=== PATIENT | female | born 1935 | race Caucasian/White ===

== ENCOUNTER 2024-03-29 08:35 | Observation (INO) ==
--- NOTE | 2024-03-25 11:51 | PAT Medication Instructions ---
Medication Instructions Date of Service March 25, 2024 Home Medications amlodipine 5 mg tablet 5 mg PO QPM aspirin 81 mg tablet,delayed release 81 mg PO QAM citalopram 40 mg tablet (Celexa) 40 mg PO HS cyanocobalamin (vitamin B-12) 1,000 mcg tablet,extended release 1,000 mcg PO QAM levothyroxine 88 mcg capsule 88 mcg PO QAM oxybutynin chloride 10 mg tablet,extended release 24 hr 10 mg PO QAM pantoprazole 40 mg tablet,delayed release 40 mg PO QAM pravastatin 80 mg tablet 80 mg PO QPM ubidecarenone-omega 3-vit E 25 mg-150 (90-60) mg-200 unit capsule (Co S-67-Hnlasiv E-Fish Oil) 1 cap PO BID ASK your prescriber and surgeon aspirin 81 mg tablet,delayed release 81 mg PO QAM STOP taking 2 weeks before surgery (or as soon as possible if surgery is within 2 weeks) ubidecarenone-omega 3-vit E 25 mg-150 (90-60) mg-200 unit capsule (Co Q-95-Hfoxlzy E-Fish Oil) 1 cap PO BID DO NOT take the morning of surgery cyanocobalamin (vitamin B-12) 1,000 mcg tablet,extended release 1,000 mcg PO QAM Take morning of surgery With a small sip of water, OTHERWISE NOTHING TO EAT OR DRINK AFTER MIDNIGHT: levothyroxine 88 mcg capsule 88 mcg PO QAM oxybutynin chloride 10 mg tablet,extended release 24 hr 10 mg PO QAM pantoprazole 40 mg tablet,delayed release 40 mg PO QAM Take evening before surgery amlodipine 5 mg tablet 5 mg PO QPM citalopram 40 mg tablet (Celexa) 40 mg PO HS pravastatin 80 mg tablet 80 mg PO QPM Other Notes If you have any questions please call us at [phone] or [phone] or [phone] or [phone]
--- NOTE | 2024-03-25 12:23 | Anesthesiology Consultation ---
Date of Service March 25, 2024 Assessment & Plan (1) Encounter for pre-operative examination: - cardiology office visit 02/23/24 [facility]: "...CAD-100% RCA, mild disease in circumflex and LAD via cath 2003. Hypertension. Hyperlipidemia. Mild aortic valve sclerosis...able to complete ADLs independently...stable. Denies nitroglycerin use...not on BB due to SB...Follow up in 1 year..." - Case discussed in detail with Dr. Escalante who advised nothing additional is needed prior to surgery. - Outpatient joint assessment: Patient is currently scheduled for inpatient pathway. If re-evaluated and patient/surgeon requests outpatient pathway, patient is not recommended candidate for outpatient joint program from anesthesia standpoint. Chart Review Chart Review: Acceptable Risk for Surgery and Patient seen in Pre Admission Testing Teaching & Discussion Pre-Anesthesia Teaching/Discussion Notes: Instructed NPO after midnight before surgery, except medications with 15 cc of water. Medication instructions provided according to the PAT guidelines. History Surgery Operation Date: 03/29/24 12:30 Proposed Procedures p Right Total Hip Arthroplasty - Ebenezer Fry MD Height/Weight Height: 5 ft 1 in Weight: 75.2 kg Allergies Allergy/AdvReac Type Severity Reaction Status Date / Time nitrofurantoin Allergy Intermediate "felt Verified 03/25/24 11:24 [From Macrodantin] funny" Sulfa (Sulfonamide Allergy Intermediate Hives Verified 03/25/24 11:24 Antibiotics) Medications Home Medications Medication Instructions Recorded Confirmed Last Taken amlodipine 5 mg tablet 5 mg PO QPM 03/25/24 03/25/24 Unknown aspirin 81 mg tablet,delayed 81 mg PO QAM 03/25/24 03/25/24 Unknown release citalopram 40 mg tablet (Celexa) 40 mg PO HS 03/25/24 03/25/24 Unknown cyanocobalamin (vitamin B-12) 1,000 mcg PO QAM 03/25/24 03/25/24 Unknown 1,000 mcg tablet,extended release levothyroxine 88 mcg capsule 88 mcg PO QAM 03/25/24 03/25/24 Unknown oxybutynin chloride 10 mg 10 mg PO QAM 03/25/24 03/25/24 Unknown tablet,extended release 24 hr pantoprazole 40 mg tablet,delayed 40 mg PO QAM 03/25/24 03/25/24 Unknown release pravastatin 80 mg tablet 80 mg PO QPM 03/25/24 03/25/24 Unknown ubidecarenone-omega 3-vit E 25 1 cap PO BID 03/25/24 03/25/24 Unknown mg-150 (90-60) mg-200 unit capsule (Co I-84-Nkzcxci E-Fish Oil) Past Medical History Medical History (Updated 03/25/24 @ 12:27 by Gricelda Delgadillo PA-C) CAD (coronary artery disease) follows with [facility] Closed fracture of right hip Depressive disorder Generalized anxiety disorder GERD (gastroesophageal reflux disease) controlled, stable per pt History of COVID-2021--mild symptoms, resolved History of diverticulitis 1960s Hypertension controlled, stable per pt Hypothyroidism Iron deficiency anemia Metabolic syndrome Mixed hyperlipidemia Osteoarthritis Osteoporosis Urinary incontinence, mixed Patient denies h/o stroke, seizures, heart attack, heart failure, DM, blood clots/DVTs or blood transfusions. Exercise / Class Metabolic Activity III < 4 Walking/Shop/Light housework (ambulates with walker, denies chest discomfort or shortness of breath with usual activities) Past Family History Family History Daughter Family history of reaction to anesthesia "couldn't catch my breath after having my tubes tied 30yrs ago"--"I just had surgery in Sep 2023 on my breast and didnt have any issues at all" Past Surgical History Surgical History History of appendectomy History of bilateral cataract extraction History of cardiac cath 2003: 100% RCA stenosis, mild disease in Cx and LAD per [facility] records History of cholecystectomy History of colonoscopy History of dilatation and curettage History of hysterectomy with unilateral oophorectomy History of repair of left rotator cuff History of tooth extraction partial upper Past Anesthesia History No Hx of Anesthesia Complications and Other (see above re: daughter-patient notes daughter has asthma) History of PONV No Hx of PONV and No Hx of Motion Sickness Social History Smoking Status: Never smoker Do You Dip or Chew Tobacco: No Hx Alcohol Use: Yes Alcohol type: beer alcohol intake frequency: holidays/special occasions only Hx Substance Use: No substance use type: does not use Review of Systems Snoring, denies witnessed apneas. Patient denies chest pain, shortness of breath, dyspnea on exertion, fever, chills, cough, wheezing, or palpitations. Physical Exam Vital Signs Vitals BP 125/80 P 76 TEMP 98.7 SP02 98% on RA RESP 18 Physical Patient resting comfortably in chair in no acute distress, alert and oriented, responding appropriately throughout visit Full cervical extension range of motion without pain TMD 3.5 finger breadths Mallampati Score 2 Dentition: partial upper, denies chipped or loose teeth, caps/crowns, implants or bridges Lungs: normal respiratory effort. Good air movement, clear throughout to auscultation, no adventitious breath sounds Cardiac: regular rate and rhythm, no murmurs noted Carotid arteries: negative bruit bilat Lab Results Anesthesia Preop Results Results Anesthesia Widget: WBC 11.95 K/ul (4.8-10.8) H 03/25/24 Hgb 12.2 g/dl (12.0-16.0) 03/25/24 Hct 37.3 % (37.0-47.0) 03/25/24 Plt 330 K/uL (130-400) 03/25/24 Na 137 mmol/L (136-145) 03/25/24 K 3.3 mmol/L (3.5-5.1) L 03/25/24 Cl 98 mmol/L (98-107) 03/25/24 CO2 30 mmol/L (21-32) 03/25/24 BUN 17 mg/dl (6-23) 03/25/24 Creat 0.92 mg/dl (0.6-1.2) 03/25/24 Glucose Level 74 mg/dl (70-99(Fasting)) 03/25/24 PT 11.1 Seconds (9.0-12.0) 03/25/24 PTT 26 Seconds (21-31) 03/25/24 INR 1.0 (0.9-1.1) 03/25/24 Blood Type AB Negative 03/25/24 Antibody Screen NEGATIVE 03/25/24 Testing Electrocardiogram Date: 02/23/24 NSR, rate 64 bpm Possible anterior infarct, cited on or before 11/19/21 Chest X-Ray Date: 03/25/24 No acute chest disease. Echocardiogram Date: 01/03/20 EF 65-69% Mild cLVH No LV segmental wall motion abnormalities Mild aortic valve sclerosis, no aortic stenosis
[~2024-03-29 08:35] MED LIST: BUPIVACAINE 0.5 % 5 MG/1 ML PF 10ML VIAL ONE
--- NOTE | 2024-03-29 08:43 | History & Physical Bridge Note ---
Date of Service March 29, 2024 History & Physical Bridge Note I have examined the patient, reviewed the History & Physical and in the interval since the performance of the History & Physical I have noted the following changes of clinical significance: no changes noted
[2024-03-29] MEDS: FAMOTIDINE 20 MG TAB PO SCH (09:27)
[2024-03-29] MEDS: LR 500ML BOLUS, THEN 15ML/HR IV SCH (09:45)
[2024-03-29] MEDS: METOCLOPRAMIDE HCL 10 MG TABLET PO SCH (09:46)
[2024-03-29] MEDS: LR 60ML/HR IV SCH (09:46)
[2024-03-29] MEDS: ACETAMINOPHEN 500 MG TAB PO SCH ×2 (09:47→16:11)
[2024-03-29] MEDS: dexAMETHasone**PF** 10 MG/ML VIAL IV SCH (09:47)
[2024-03-29] MEDS: CeleBREX 200 MG CAP PO SCH (09:48)
[2024-03-29] MEDS ORDERED: fentaNYL citrate PF 100 MCG/2 ML VIAL IV PRN (09:52)
[2024-03-29] MEDS ORDERED: ONDANSETRON INJ 2 MG/ML 2 ML VIAL IV PRN ×2 (09:52→13:58)
[2024-03-29] MEDS ORDERED: ATROPINE SULFATE 0.1 MG/ML 10ML SYR IV PRN (09:52)
[2024-03-29] MEDS ORDERED: ePHEDrine sulfate 50 MG/ML AMP IV PRN (09:52)
[2024-03-29] MEDS ORDERED: MIDAZOLAM HCL 1 MG/ML 2ML VIAL ONE (09:54)
[2024-03-29] MEDS ORDERED: fentaNYL citrate PF 100 MCG/2 ML VIAL ONE (09:54)
[2024-03-29] MEDS: TRANEXAMIC ACID 1,000 MG **IV Pre-op IV SCH (10:45)
[2024-03-29] MEDS ORDERED: PROPOFOL IV EMULSION 10 MG/ML 20 ML VIAL IV ONE (11:03)
[2024-03-29] MEDS: ceFAZolin 2000MG 2,000 MG/15 ML SYR IV SCH (11:08)
[2024-03-29] MEDS ORDERED: LIDOCAINE 2% 2 ML VIAL/AMP(20MG/ML) INFIL ONE (11:21)
[2024-03-29] MEDS ORDERED: ePHEDrine sulfate 50 MG/5 ML SYR ONE (11:42)
[2024-03-29] MEDS: BUPIVACAINE/EPINEPHRINE 0.5% MPF 1:200,000 30 ML VIAL ONE (11:44)
--- NOTE | 2024-03-29 12:56 | Operative Report ---
PG Post Operative Report Pre & Post Diagnosis Operation Date: 03/29/24 12:30 Pre-Op Diagnosis: Closed right femoral neck stress hip fracture, right hip degenerative joint disease Post-Op Diagnosis: Closed right femoral neck stress hip fracture, right hip degenerative joint disease I identified the patient and participated in the time-out.: Yes Procedure Operation Date: 03/29/24 12:30 Actual Procedures p Right Total Hip Arthroplasty, Cemented(Right) - Ebenezer Fry MD Surgeon Ebenezer Fry MD Backrest Assembler Deshawn Valerio PA-C Estimated Blood Loss 150 Findings Consistent with Post-Op Diagnosis Specimens Right femoral head sent for pathology Anesthesia Type Spinal MAC Complications none Disposition Accompanied Patient To Recovery: No Indications Patient is an 88-year-old independent female whose had about a 4 to 5-month h istory of persistent progressive right hip pain discomfort is become more disabling over time. She failed all conservative measures. She actually had to resort to using a walker to get around. X-rays revealed some moderate arthritis in her hip which had progressed. She had an MRI which showed a femoral neck stress fracture on the tension side of her femur. Treatment options were explained and discussed we elected proceed with total hip arthroplasty. Description of Procedure Operative implants consist of: 1 Biomet G7 size 50 mm acetabular shell. 2. Phyllis hole laboratory sampler. 3. 6.5 cancellous acetabular screws 1 of 35 mm in length and 125 mm length. 4. Highly cross-linked polyethylene liner with a 50 mm outer diameter and 36 mm inner diameter. 5. Diffuse [place] size 2 standard cemented femoral stem. 6. +5/36 mm metal articular ball. The patient was taken to the operating, identified, placed on the operating table in the supine position. All contact areas were appropriately padded. IV antibiotics tried by anesthesia team. A spinal anesthetic and been implemented holding area. Soler catheter was placed in sterile fashion. The patient then placed in the left lateral decubitus position. An axillary roll was placed. Stulberg hip positioner was used for positioning. The right hip and leg were then prepped and draped in usual sterile fashion. A posterolateral approach to the right hip was then performed to a curvilinear incision centered over the greater trochanter. Sharp dissection was carried through subcutaneous tissue down to level the IT band gluteal fascia. The IT band gluteal fascia was sized to large tubular in line with the skin incision. The underlying greater bursa was excised. The piriformis and external rotators along with the posterior joint capsule were then released from the posterior aspect of the hip as a single layer. Great care was taken throughout the procedure to protect the sciatic nerve at all times. The hip was then internally rotated and dislocated. Femoral neck osteotomy cut was made about a centimeter above the lesser trochanter. Femoral head was removed and sent for pathology. Of note, it did appear that she had an area of collapse in the superior aspect the femoral head. The femur was retracted anteriorly. Attention drawn the acetabulum. The acetabular labrum was excised. The pulmonary fat was excised. Sequential reaming the acetabular was then performed again with size 43 and progressing up to a 49. I reamed a little bit with a 50 reamer and then placed a 50 mm Biomet G7 acetabular shell in about 40 degrees lateral opening and 20 degrees of anteversion. It was fixed with 2 cancellous acetabular screws. Trial liner was placed. Attention drawn the femur. The proximal femur was entered with a cookie cutter followed by canal finder. I then broached and I can only really get the 1 broach down. Her bone was quite good quality. We then trialed the hip and the +5 articular ball prelubricated soft tissue tension appropriately, recreated leg lengths and was fully stable. We elect to place these implants. All trial implants were removed. Phyllis hole laboratory sampler was placed. Highly cross- linked polyethylene liner was placed. A small cement restrictor was placed down the canal. The canal was irrigated extensively. A double batch [place] G ceme nt was mixed and injected in the canal. A size 2 [place] standard offset femoral stem was placed. Once the cement hardened a +5/36 mm metal articular ball was placed. Hip was located and once again found to be stable. Attention drawn to closing. The wound was irrigated coconuts of pulsatile lavage solution. I did inject locally with 50 cc of half percent Marcaine with epinephrine. Posterior capsule and external rotators then repaired through drill holes in the posterior trochanter with #2 Tycron suture. The IT band gluteal fascia was then closed in 1 PDS suture running fashion through subcutaneous tissue then closed with 2 layers. With the deep layer #2 Vicryl suture and subcutaneous tissues with 2-0 Dexon suture in a buried interrupted fashion. The skin was closed with skin chun. A Prevena VAC dressing was applied due to the fairly fixed subcutaneous soft tissue envelope. The patient was then transferred to the recovery room in stable condition. Patient tolerated procedure well and there were no complications. Deshawn Valerio, my physician or assistant, was present for the entire procedure. His assistance was essential and required for appropriate patient positioning, p repping and draping, surgical exposure, performing the technical details of the operation, placement the implants, closure of the wound, and placement of the sterile bandage. I attest to the content of the Intraoperative Record and any orders documented therein. Any exceptions are noted below.
--- NOTE | 2024-03-29 13:32 | Anesthesiology Progress Note ---
Date of Service March 29, 2024 Anesthesia Post Procedure Vital Signs Vital Signs: Temp Pulse Pulse Resp BP BP Pulse Ox 03/29/24 13:25 97.7 F 79 18 137/64 94 03/29/24 13:15 76 14 144/66 H 98 03/29/24 13:05 79 15 150/77 H 100 03/29/24 12:55 78 14 103/59 L 100 03/29/24 12:49 97.3 F L 82 14 117/59 L 95 03/29/24 10:24 217/81 H 03/29/24 09:27 98.2 F 67 20 225/82 H 221/86 H 97 O2 Del Method O2 Flow Rate 03/29/24 13:25 Room Air 03/29/24 13:15 Oxymask 3 03/29/24 13:05 Oxymask 3 03/29/24 12:55 Oxymask 6 03/29/24 12:49 Oxymask 10 03/29/24 10:24 03/29/24 09:27 Room Air Transfer of Care Handoff Completed per policy Notes Mental Status: alert / awake / arousable and participated in evaluation Patient Amnestic to Procedure: Yes Nausea / Vomiting: adequately controlled Pain: adequately controlled Airway Patency, RR, SpO2: stable & adequate BP & HR: stable & adequate Hydration State: stable & adequate Neuraxial Anesthesia: was administered and sensory block is resolving Anesthetic Complications: no major complications apparent and Pt Satisfied with anesthetic care
--- NOTE | 2024-03-29 13:45 | XRay Report ---
AP PELVIS, CROSSTABLE LATERAL RIGHT HIP History: Right total hip arthroplasty. Degenerative arthritis. Postop. FINDINGS: The patient is status post a right total hip arthroplasty. The hardware is intact. No fract ure or dislocation. Skin chun are in place. IMPRESSION: Right total hip arthroplasty. No evidence for hardware complication ACT 112: Negative or not required by law. Electronically signed by: Joby Olivares M.D. 03/29/2024 1:44 PM
[2024-03-29] MEDS ORDERED: ALUMINUM/MAGNESIUM SUSP 30 ML UDC PO PRN (13:58)
[2024-03-29] MEDS ORDERED: HYDROmorphone INJ 0.5 MG/0.5 ML SYR IV PRN (13:58)
[2024-03-29] MEDS ORDERED: bisacodyL 10 MG SUPP PR PRN (13:58)
[2024-03-29] MEDS ORDERED: NALOXONE HCL 0.4 MG/1 ML VIAL/CARP IV PRN (13:58)
[2024-03-29] MEDS ORDERED: MAGNESIUM HYDROXIDE SUSP 30 ML UDC PO PRN (13:58)
[2024-03-29] MEDS ORDERED: METOCLOPRAMIDE HCL INJ 5 MG/ML 2 ML VIAL IV PRN (13:58)
[2024-03-29] MEDS ORDERED: ACETAMINOPHEN 500 MG TAB PO SCH (14:00)
[2024-03-29] MEDS: KETOROLAC TROMETHAMINE 15 MG/ML VIAL IV SCH (14:26)
[2024-03-29] MEDS: SODIUM CHLORIDE 0.9% 1,000 ML IV SCH (14:27)
--- NOTE | 2024-03-29 15:19 | Anesthesiology Progress Note ---
Date of Service March 29, 2024 Anesthesia Post Procedure Vital Signs Vital Signs: Temp Pulse Pulse Resp BP BP Pulse Ox 03/29/24 14:50 36.4 C L 90 16 144/82 H 95 03/29/24 14:24 36.4 C L 74 14 148/73 H 92 03/29/24 13:51 36.4 C L 76 18 155/75 H 94 03/29/24 13:35 36.5 C 77 18 130/66 96 03/29/24 13:25 36.5 C 79 18 137/64 94 03/29/24 13:15 76 14 144/66 H 98 03/29/24 13:05 79 15 150/77 H 100 03/29/24 12:55 78 14 103/59 L 100 03/29/24 12:49 36.3 C L 82 14 117/59 L 95 03/29/24 10:24 217/81 H 03/29/24 09:27 36.8 C 67 20 225/82 H 221/86 H 97 O2 Del Method O2 Flow Rate 03/29/24 14:50 Room Air 03/29/24 14:24 Room Air 03/29/24 13:51 Room Air 03/29/24 13:35 Room Air 03/29/24 13:25 Room Air 03/29/24 13:15 Oxymask 3 03/29/24 13:05 Oxymask 3 03/29/24 12:55 Oxymask 6 03/29/24 12:49 Oxymask 10 03/29/24 10:24 03/29/24 09:27 Room Air Transfer of Care Handoff Completed per policy Notes Mental Status: alert / awake / arousable Patient Amnestic to Procedure: Yes Nausea / Vomiting: adequately controlled Pain: adequately controlled Airway Patency, RR, SpO2: stable & adequate BP & HR: stable & adequate Hydration State: stable & adequate Neuraxial Anesthesia: sensory block is resolving Anesthetic Complications: no major complications apparent
[2024-03-29] MEDS: ASCORBIC ACID 500 MG TAB PO SCH (16:55)
[2024-03-29] MEDS: traMADol HCL 50 MG TABLET PO PRN (18:26)
[2024-03-29] MEDS: TRANEXAMIC ACID / 0.7% NACL 1,000 MG/100 ML BAG IV SCH (18:27)
[2024-03-29] MEDS: ceFAZolin 1000MG 1,000 MG/7.5 ML SYR IV SCH (18:47)
[2024-03-29] MEDS: ASPIRIN 81 MG ECTAB PO SCH (19:43)
[2024-03-29] MEDS: amLODIPine BESYLATE 5 MG TAB PO SCH (19:46)
[2024-03-29] MEDS: CITALOPRAM 40 MG TAB PO SCH (19:47)
[2024-03-29] MEDS: PRAVASTATIN SOD 40 MG TAB PO SCH (19:48)
[2024-03-29] MEDS: DOCUSATE SODIUM 100 MG CAP PO SCH (19:48)
[2024-03-29] MEDS: SENNA 8.6 MG TAB PO SCH (19:49)
[2024-03-29] MEDS ORDERED: [UNRECOGNIZED DRUG - OTHER] PO SCH (21:00)
[2024-03-29] MEDS ORDERED: SENNA 8.6 MG TAB PO SCH (21:00)
[2024-03-30] MEDS: LEVOTHYROXINE SODIUM 88 MCG TABLET PO SCH (05:53)
[2024-03-30 06:21] LABS: Basophils # (auto) 0.05 K/uL (0.00-0.20); Basophils % (auto) 0.2 %; Eosinophils # (auto) 0.01 K/uL (0.00-0.50); Hematocrit (blood only) 31.8 % (37.0-47.0); Hemoglobin 10.2 g/dl (12.0-16.0); Immature Granulocytes # (auto) 0.12 K/uL (0.01-0.20); Immature Granulocytes % (auto) 0.6 %; Lymphocytes # (auto) 1.29 K/uL (1.20-3.40); Lymphocytes % (auto) 6.4 %; Mean Corpuscular Hemoglobin 27.9 pg (25.0-34.0); Mean Corpuscular Hgb Conc 32.1 g/dL (32.0-36.0); Mean Corpuscular Volume 87.1 fL (80.0-100.0); Mean Platelet Volume 11.6 fL (9.4-12.4); Monocytes # (auto) 0.88 K/uL (0.11-0.59); Monocytes % (auto) 4.4 %; Neutrophils # (auto) 17.79 K/uL (1.40-6.50); Neutrophils % (auto) 88.4 %; Platelet Count 291 K/uL (130-400); RDW Coefficient of Variation 12.5 % (11.5-14.5); Red Blood Count 3.65 M/uL (4.20-5.40); White Blood Count 20.14 K/ul (4.8-10.8)
[2024-03-30 06:40] LABS: BUN Creatinine Ratio 13.4 (10-20); Calcium 8.4 mg/dl (8.6-10.3); Creatinine Clr Calc Pharmacy 45.4 ml/min; Est GFR (African American) 75.1 ml/min; Est GFR (Non-African American) 64.8 ml/min; Potassium 3.6 mmol/L (3.5-5.1)
[2024-03-30] MEDS: dexAMETHasone 10 MG in SYRINGE 0 ML IV SCH (08:39)
[2024-03-30] MEDS: CYANOCOBALAMIN (B-12) 500 MCG TABLET PO SCH (08:40)
[2024-03-30] MEDS: MULTIVITAMIN TAB PO SCH (08:40)
[2024-03-30] MEDS: OXYBUTYNIN CHLORIDE XL 5 MG TABCR PO SCH (08:41)
[2024-03-30] MEDS: PANTOprazole 40 MG TAB PO SCH (08:41)
--- NOTE | 2024-03-30 08:41 | Orthopedic Progress Note ---
Date of Service March 30, 2024 Assessment & Plan (1) Closed right hip fracture: (2) Osteoarthritis of right hip: (3) S/P total right hip arthroplasty: Plan 88-year-old woman POD# 1 s/p right total hip replacement, doing well overall. Pain is relatively well-controlled. Medically stable. Prosthetic hip is located; postop x-rays well-appearing. She is neurologically intact. Plan: 1. DVT prophylaxis w/ TEDs, SCDs, ASA 81 mg BID. 2. PT/OT as tolerated. WBAT on RLE. Right posterolateral approach total hip precautions/protocol. 3. Pain control doing well with current pain regimen. 4. Disposition - plan to D/C home w/ home health care later today once cleared by PT/OT. 5. F/u as scheduled w/ first post-op visit. Admission and Anticipated Discharge Date Admission Date: March 29, 2024 Subjective Patient is POD# 1 s/p right total hip arthroplasty by Dr. Fry on 03/29/2024. Patient says her pain is well-controlled this morning. Denies CP, SOB, N/V, RLE paresthesia. She is working with transition social worker/case management for home health care arrangements. Patient says that she will be ready to go home today. Physical Exam Physical Exam: GENERAL: AA&Ox3, NAD. Pleasant, affect is calm. Sitting in bed eating and appears comfortable. RESPIRATORY: Normal respiratory effort with no signs of distress. CHEST/AXILLA: Chest movement symmetrical. No deformities noted. CARDIOVASCULAR: No edema noted. SKIN: [place], warm and dry. MS/EXTREMITY: Hip Prevena wound vac c/d/i; good seal/suction. GISELE hose donned to contralateral LE. Thigh is soft, supple. Leg lengths are equal. + ankle dorsi/plantarflexion. NVI distally. Calf soft/NT. PT/DP intact. Results & Data Vital Signs (Past 12 Hours) Vital Signs Temp Pulse Pulse Resp BP BP Pulse Ox 03/30/24 08:16 36.8 C 61 15 186/84 H 94 03/30/24 04:00 36.8 C 60 16 178/73 H 94 03/29/24 23:55 66 16 175/73 H 03/29/24 23:00 36.8 C 66 16 176/86 H 95 O2 Del Method 03/30/24 08:16 Room Air 03/30/24 04:00 Room Air 03/29/24 23:55 Room Air 03/29/24 23:00 Room Air Laboratory Results Laboratory Results - last 48 hr 03/30/24 05:27 WBC 20.14 H RBC 3.65 L Hgb 10.2 L Hct 31.8 L MCV 87.1 MCH 27.9 MCHC 32.1 RDW Std Deviation 40.0 RDW Coeff of Lizzie 12.5 Plt Count 291 MPV 11.6 Immature Gran % (Auto) 0.6 Neut % (Auto) 88.4 Lymph % (Auto) 6.4 Trigg % (Auto) 4.4 Eos % (Auto) 0.0 Baso % (Auto) 0.2 Neut # (Auto) 17.79 H Lymph # (Auto) 1.29 Trigg # (Auto) 0.88 H Eos # (Auto) 0.01 Baso # (Auto) 0.05 Immature Gran # (Auto) 0.12 Sodium 138 Potassium 3.6 Chloride 101 Carbon Dioxide 27 Anion Gap 10 BUN 11 Creatinine 0.82 Est Cr Clr Drug Dosing 45.4 Est GFR ( Amer) 75.1 Est GFR (Non-Af Amer) 64.8 BUN/Creatinine Ratio 13.4 Glucose 163 H Calcium 8.4 L Diagnostic Findings Hip/Pelvis X-Ray 03/29/24 12:49 AP PELVIS, CROSSTABLE LATERAL RIGHT HIP History: Right total hip arthroplasty. Degenerative arthritis. Postop. FINDINGS: The patient is status post a right total hip arthroplasty. The hardware is intact. No fracture or dislocation. Skin chun are in place. IMPRESSION: Right total hip arthroplasty. No evidence for hardware complication ACT 112: Negative or not required by law. Electronically signed by: Joby Olivares M.D. 03/29/2024 1:44 PM
--- NOTE | 2024-03-30 11:52 | Discharge Summary ---
Date of Service March 30, 2024 Admission HPI Per Admitting Provider The patient is an 88-year-old female who presents with a 4-month history of progressive increases in right hip pain, discomfort. No particular injury. There has been no fall. This started 4 months ago and has been progressive. She is actually resorted to using a walker for the past several weeks. She has got a groin pain. She lives by herself and is having difficulty doing that. She initially had an x-ray, which was negative. She had an MRI, which showed a femoral neck fracture with some underlying arthritis. She presents for treatment. She did go through a course of therapy, which only made things worse . Admission Exam Per Admitting Provider 03/25/24: Gen: Examination shows a pleasant elderly female. She looks to be in a ceci sonably good health. HEENT: Benign. Neck: Supple. No lymphadenopathy. Lungs: Clear to auscultation. Heart: Regular rate and rhythm. Abdomen: Soft, nontender and nondistended. Extremities: Grossly neurovascularly intact except as follows: Examination of right hip and leg revealed the patient walks with a markedly antalgic gait. She walks with the use of a walker. Her leg lengths are equal. She does have pain with hip motion and internal rotation about neutral. Negative straight leg raise. No knee infusion. She is neurologically intact. X-rays of the right hip from today were reviewed. It shows a fairly normal- looking hip joint. Bone density looks reasonably good. There are no obvious signs of fracture. She has got some moderate hip arthritis. Clearly some narrowing of her superior joint space. Principal Diagnosis Same as "Discharge Diagnosis" noted below under Discharge Instructions. Discharge Exam GENERAL: AA&Ox3, NAD. Pleasant, affect is calm. Sitting in bed eating and appears comfortable. RESPIRATORY: Normal respiratory effort with no signs of distress. CHEST/AXILLA: Chest movement symmetrical. No deformities noted. CARDIOVASCULAR: No edema noted. SKIN: [place], warm and dry. MS/EXTREMITY: Hip Prevena wound vac c/d/i; good seal/suction. GISELE hose donned to contralateral LE. Thigh is soft, supple. Leg lengths are equal. + ankle dorsi/plantarflexion. NVI distally. Calf soft/NT. PT/DP intact. Discharge Data Allergies Allergy/AdvReac Type Severity Reaction Status Date / Time nitrofurantoin Allergy Intermediate "felt Verified 03/29/24 09:10 [From Macrodantin] funny" Sulfa (Sulfonamide Allergy Intermediate Hives Verified 03/29/24 09:10 Antibiotics) Procedures Performed Operation Date: 03/29/24 12:30 Actual Procedures p Right Total Hip Arthroplasty, Cemented(Right) - Ebenezer Fry MD Ordered Studies Hip/Pelvis X-Ray 03/29/24 12:49 AP PELVIS, CROSSTABLE LATERAL RIGHT HIP History: Right total hip arthroplasty. Degenerative arthritis. Postop. FINDINGS: The patient is status post a right total hip arthroplasty. The hardware is intact. No fracture or dislocation. Skin chun are in place. IMPRESSION: Right total hip arthroplasty. No evidence for hardware complication ACT 112: Negative or not required by law. Electronically signed by: Joby Olivares M.D. 03/29/2024 1:44 PM Hospital Course (1) Closed right hip fracture: (2) Osteoarthritis of right hip: (3) S/P total right hip arthroplasty: On March 29, [address] [facility] operating room and underwent a right total hip replacement without complications. Patient had a spinal anesthetic for the procedure. Postoperatively, patient was transferred to the general orthopedic floor in stable condition and eventually started onto aspirin 81 mg twice daily for DVT prophylaxis as appropriate. Patient's hospital course was uneventful. On postoperative day #1, patient's vital signs were stable and pain was well-controlled. Patient was able to participate well with physical therapy, performing the necessary ambulation and range of motion exercises. Patient was then discharged home in stable condition, with home health care services to begin. Patient will follow-up with orthopedics in 2 weeks for postoperative care. Plan 88-year-old woman POD# 1 s/p right total hip replacement, doing well overall. Pain is relatively well-controlled. Medically stable. Prosthetic hip is located; postop x-rays well-appearing. She is neurologically intact. Plan: 1. DVT prophylaxis w/ TEDs, SCDs, ASA 81 mg BID. 2. PT/OT as tolerated. WBAT on RLE. Right posterolateral approach total hip precautions/protocol. 3. Pain control doing well with current pain regimen. 4. Disposition - plan to D/C home w/ home health care later today once cleared by PT/OT. 5. F/u as scheduled w/ first post-op visit. Total Time Total Time Spent Total Time Spent (In Minutes): Total Time Spent with Patient: Total time spent is greater than 50% in coordination of care (as documented) at patient's floor/unit and/or counseling patient: Discharge Plan Discharge Items Patient Disposition: Home - Home Health Services Reason For Visit: Right Hip Degenerative Joint Disease Discharge Diagnosis: Right Hip Replacement Activity: Per Instructions section Activity Comment: Obey/Follow hip precautions at all times. Weightbearing: Full weightbearing Weightbearing Comment: Weightbear as tolerated obeying hip precautions at all times. Non-emergency contact: Surgeon Call non-emergency contact if: you have any medication questions Follow-up/Referrals: Oniel Mike [Primary Care Provider] - Diet: Regular Addtl Attending Provider Instructions: ACTIVITY RECOMMENDATIONS: Physical Therapy: * Aggressive physical therapy is not usually needed. You will learn to take care of yourself safely and walk. * Follow the "Hip Precautions Instructions." * In some cases, the social service coordinator at the hospital will arrange to have a therapist come to your house for the first couple of weeks to help you learn these skills. * You need to practice on your own or with the help of a family member as needed. * When you learn these skills, most of the therapy can be done on your own. Home Exercise: * You were shown a series of exercises in the hospital. Do these exercises three to four times each day including the exercises you were shown in physical therapy. Walking: * Get up and walk several times each day. For the first four weeks, try not to stand or walk for more than one hour at a time. If you do stand or walk for more than one hour, you will not hurt anything, but your leg will likely swell. * As you feel comfortable, you may change from the walker or crutches to a cane and then to independent walking. MEDICATIONS: New Medicine: * You will likely be taking one or more of these medicines: 1. Tramadol - Take, as directed, when you need it, every six hours to control your pain. 2. Aspirin - Thins your blood to lessen the chance of forming a blood clot. * The most common side effects of pain medicine and iron are nausea and constipation. If nausea or constipation is too much of a problem or if you have any questions about your new medicines or doses, call [facility] at [phone]. We will try to help you manage these issues. "VERY IMPORTANT TO READ AND REVIEW" Pain: * The immediate post-operative period after hip replacement surgery is often quite painful. * You are given a prescription for pain medicine. You should take it, as directed, when you need it, especially before physical therapy and before going to bed. Pain that interferes with sleep is very common and can last several months. * You will likely need pain medicine for the first two to four weeks. It will not stop all of the pain. The pain will lessen and as you feel better, you may change to milder pain medicine such as Tylenol. * The most common side effects of pain medicine are nausea and constipation, so don't take more than you need. SPECIAL CARE INSTRUCTIONS: TEDs/Elastic Stockings: * The white elastic stockings help limit swelling and prevent blood clots from forming in your legs. The more you wear them, the more they work. * Wear them for six weeks. Incision Site Care: * Remove dressing postoperative day 7. Keep direct shower pressure off the incision site and Proveena vac power source out of shower. * After showering, cover chun with dry gauze and change daily or more frequently if the dressing is getting saturated with drainage. * May completely stop using bandage if wound is dry and no drainage * Chun are removed between 2 and 3 weeks post-op. If your follow-up appointment is made before 2 weeks, please have your appointment re- scheduled. It is too early to remove the chun. Prevention of Infection: * Take antibiotics one hour before any dental cleaning, dental work, urological procedure, gastrointestinal procedure or any invasive surgery in order to prevent your new joint from getting infected. * You may get the antibiotics from the doctor performing the procedure or you may call our office at before and we will call in a prescription to the pharmacy of your choice. Things to Watch For: * Drainage from the incision site that occurs more than one week after your surgery. * Severely increased leg pain or swelling. * Increased redness at the incision site. * Fever above 102 degrees Fahrenheit. * Unusual chest pain or shortness of breath. * Unusual pain or burning with urination. Call [facility] at with any of the above problems or if you have any questions about your medicines or recovery. FOLLOW UP VISIT: Make an appointment to see your doctor for approximately two weeks after surgery for a progress check and staple removal by calling the office at . Pending Studies at Discharge: No Stand-Alone Forms: [facility], Smoking Cessation Medications and DC Order Prescriptions: Continued tramadol 50 mg tablet 50 - 100 mg PO Q8H PRN (Reason: pain) Qty: 30 0RF Rx Instructions: Take as needed for pain ondansetron 4 mg tablet,disintegrating 4 mg PO Q8 PRN (Reason: nausea) Qty: 20 1RF Rx Instructions: Take as needed for nausea ketorolac 10 mg tablet 10 mg PO TID 5 Days Qty: 15 0RF Rx Instructions: Take 3 times per day with food for 5 days to lessen pain and swelling. sennosides [Senokot] 8.6 mg tablet 8.6 mg PO BID 14 Days Qty: 28 0RF Rx Instructions: Take two times a day to prevent/treat constipation acetaminophen [Tylenol Extra Strength] 500 mg tablet 1,000 mg PO TID 30 Days Qty: 180 0RF Rx Instructions: TAke 3 times per day to lessen pain. aspirin [Lorenzo Low Dose Aspirin] 81 mg tablet,delayed release (DR/EC) 81 mg PO BID 45 Days Qty: 90 0RF Rx Instructions: Take to prevent blood clots. amlodipine 5 mg tablet 5 mg PO QPM aspirin 81 mg tablet,delayed release (DR/EC) 81 mg PO QAM citalopram [Celexa] 40 mg tablet 40 mg PO HS cyanocobalamin (vitamin B-12) 1,000 mcg tablet extended release 1,000 mcg PO QAM Co [id number] E-Fish Oil 25-150-200 mg-mg-unit capsule 1 cap PO BID levothyroxine 88 mcg capsule 88 mcg PO QAM oxybutynin chloride 10 mg tablet extended release 24hr 10 mg PO QAM pantoprazole 40 mg tablet,delayed release (DR/EC) 40 mg PO QAM pravastatin 80 mg tablet 80 mg PO QPM Krames/Other Patient Handouts: After Hip Surgery- Getting Dressed, Hip Replace Post Op Admission Data Admit Date/Time: 03/29/24 12:49 Attending Provider: Ebenezer Fry Admit Provider: Ebenezer Fry Primary Care Provider: Oniel Mike Other Providers: [facility],Home Health Other Interventions: Discharge Summary Assessment (RN) Last Done: 03/30/24 12:14
== END 2024-03-30 13:10 | disposition home health service (06) ==
LOC: 3E 08:35 → ASU 08:35

== ENCOUNTER 2025-01-23 08:45 | Observation (INO) ==
--- NOTE | 2025-01-12 14:09 | Anesthesiology Consultation ---
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 Hypertension. Hyperlipidemia. Mild aortic valve sclerosis...able to complete ADLs independently...stable. Denies nitroglycerin use...not on BB due to SB...Follow up in 1 year..." - Outpatient joint assessment: Patient is currently scheduled for inpatient pathway. If re-evaluated and patient/surgeon requests outpatient pathway, patient is not a candidate for outpatient joint program. - Per solar installer pv on 01/12/25: No known infectious disease contacts, current infectious disease symptoms in past 10 days or COVID positive test result in the past 30 days. Chart Review Chart Review: Acceptable Risk for Surgery and Patient NOT seen in Pre Admission Testing History Surgery Operation Date: 01/23/25 12:30 Proposed Procedures p Right Total Knee Arthroplasty - Ebenezer Fry MD Height/Weight Height: 5 ft Weight: 68.946 kg Allergies Allergy/AdvReac Type Severity Reaction Status Date / Time nitrofurantoin Allergy Intermediate "felt Verified 01/12/25 13:22 [From Macrodantin] funny" Sulfa (Sulfonamide Allergy Intermediate Hives Verified 01/12/25 13:22 Antibiotics) Medications Home Medications Medication Instructions Recorded Confirmed Last Taken amlodipine 5 mg tablet 5 mg PO QPM 03/25/24 01/12/25 03/28/24 19:00 aspirin 81 mg tablet,delayed 81 mg PO QPM 03/25/24 01/12/25 03/25/24 release citalopram 40 mg tablet (Celexa) 40 mg PO HS 03/25/24 01/12/25 03/28/24 21:00 cyanocobalamin (vitamin B-12) 1,000 mcg PO QAM 03/25/24 01/12/25 03/25/24 1,000 mcg tablet,extended release levothyroxine 88 mcg capsule 88 mcg PO QAM 03/25/24 01/12/25 03/29/24 06:00 oxybutynin chloride 10 mg 10 mg PO QAM 03/25/24 01/12/25 03/28/24 18:00 tablet,extended release 24 hr pantoprazole 40 mg tablet,delayed 40 mg PO QAM 03/25/24 01/12/25 03/29/24 06:00 release pravastatin 80 mg tablet 80 mg PO QPM 03/25/24 01/12/25 03/28/24 19:00 ubidecarenone-omega 3-vit E 25 1 cap PO BID 03/25/24 01/12/25 03/25/24 mg-150 (90-60) mg-200 unit capsule (Co I-[id number] E-Fish Oil) acetaminophen 500 mg tablet 1,000 mg PO TID PRN pain 01/12/25 01/12/25 Unknown (Tylenol Extra Strength) Past Medical History Medical History (Updated 01/12/25 @ 14:03 by Gricelda Delgadillo PA-C) CAD (coronary artery disease) follows with [facility] cardio Depressive disorder hx Generalized anxiety disorder hx GERD (gastroesophageal reflux disease) controlled, stable per pt History of COVID-2021--mild symptoms, resolved History of diverticulitis 1960s History of skin cancer top of head, removed Hypertension controlled, stable per pt Hypothyroidism Iron deficiency anemia recent iron infusion 12/27/24 Metabolic syndrome Mixed hyperlipidemia Osteoarthritis Osteoporosis Urinary incontinence, mixed Past Family History Family History Daughter Family history of reaction to anesthesia "couldn't catch my breath after having my tubes tied 30yrs ago"--"I just had surgery in Sep 2023 on my breast and didnt have any issues at all" Past Surgical History Surgical History (Updated 01/12/25 @ 14:04 by Gricelda Delgadillo PA-C) H/O local excision of skin lesion top of head History of appendectomy age 17 History of bilateral cataract extraction History of cardiac cath 2003: 100% RCA stenosis, mild disease in Cx and LAD per [facility] cardio records History of cholecystectomy History of colonoscopy History of dilatation and curettage History of esophagogastroduodenoscopy (EGD) History of hysterectomy with unilateral oophorectomy History of repair of left rotator cuff History of tooth extraction partial upper 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 Social History Smoking Status: Never smoker Do You Dip or Chew Tobacco: No Hx Alcohol Use: Yes Alcohol type: beer alcohol intake frequency: holidays/special occasions only Alcohol Intake Frequency Comment: none for at least 1 year Hx Substance Use: No substance use type: does not use Lab Results Anesthesia Preop Results Results Anesthesia Widget: WBC 11.57 K/ul (4.8-10.8) H 12/29/24 Hgb 12.6 g/dl (12.0-16.0) 12/29/24 Hct 39.4 % (37.0-47.0) 12/29/24 Plt 299 K/uL (130-400) 12/29/24 Na 137 mmol/L (136-145) 12/29/24 K 3.7 mmol/L (3.5-5.1) 12/29/24 Cl 100 mmol/L (98-107) 12/29/24 CO2 30 mmol/L (21-32) 12/29/24 BUN 15 mg/dl (6-23) 12/29/24 Creat 0.83 mg/dl (0.6-1.2) 12/29/24 Glucose Level 96 mg/dl (70-99(Fasting)) 12/29/24 PT 10.9 Seconds (9.0-12.0) 12/29/24 PTT 26 Seconds (21-31) 12/29/24 INR 1.0 (0.9-1.1) 12/29/24 Blood Type AB Negative 12/29/24 Antibody Screen NEGATIVE 12/29/24 Testing Chest X-Ray Date: 03/25/24 No acute chest disease.
--- NOTE | 2025-01-20 17:42 | History & Physical Report ---
Date of Service January 20, 2025 Assessment & Plan (1) Right knee DJD: 89-year-old female 10 months out from a total hip replacement done for a stress fracture with advanced right knee DJD. We have been unable to manage this conservatively and she would like to have her knee fixed. She is got to significant degenerative arthritis and chondrocalcinosis. Plan: We are going to take her to the operating room and do a right knee replacement. The risks Mente this procedure explained. Informed consent was obtained. Will use aspirin for DVT prophylaxis. She is planned to be discharged to home with her daughter's assistance in care. (2) Hypothyroidism: (3) Generalized anxiety disorder: (4) Metabolic syndrome: (5) Hypertension: (6) Iron deficiency anemia: (7) Depressive disorder: (8) Osteoporosis: (9) Mixed hyperlipidemia: (10) GERD (gastroesophageal reflux disease): (11) CAD (coronary artery disease): History of Present Illness Chief Complaint: . Persistent right knee pain and discomfort. Primary Care Provider: Oniel Mike . The patient is an 89-year-old female who is status post a right total hip replacement done for femoral neck stress fracture about 10 months ago. She was pretty debilitated by this for a while and dropped but recovered quite nicely from the surgery. Over the past 6 months she developed increased pain disco mfort in the right knee. We tried an injection which has not been successful at all. He is having trouble maintaining her activity level due to her knee pain. The hips done great. She like to have her knee fixed. Allergies Allergy/AdvReac Type Severity Reaction Status Date / Time nitrofurantoin Allergy Intermediate "felt Verified 01/12/25 13:22 [From Macrodantin] funny" Sulfa (Sulfonamide Allergy Intermediate Hives Verified 01/12/25 13:22 Antibiotics) Home Medications Medication Instructions Recorded Confirmed Type amlodipine 5 mg tablet 5 mg PO QPM 03/25/24 01/12/25 History aspirin 81 mg tablet,delayed 81 mg PO QPM 03/25/24 01/12/25 History release citalopram 40 mg tablet (Celexa) 40 mg PO HS 03/25/24 01/12/25 History cyanocobalamin (vitamin B-12) 1,000 mcg PO QAM 03/25/24 01/12/25 History 1,000 mcg tablet,extended release levothyroxine 88 mcg capsule 88 mcg PO QAM 03/25/24 01/12/25 History oxybutynin chloride 10 mg 10 mg PO QAM 03/25/24 01/12/25 History tablet,extended release 24 hr pantoprazole 40 mg tablet,delayed 40 mg PO QAM 03/25/24 01/12/25 History release pravastatin 80 mg tablet 80 mg PO QPM 03/25/24 01/12/25 History ubidecarenone-omega 3-vit E 25 1 cap PO BID 03/25/24 01/12/25 History mg-150 (90-60) mg-200 unit capsule (Co [id number] E-Fish Oil) acetaminophen 500 mg tablet 1,000 mg PO TID PRN pain 01/12/25 01/12/25 History (Tylenol Extra Strength) Past Med/Surg History Problem List Encounter for pre-operative examination Right knee DJD Medical History History of skin cancer top of head, removed CAD (coronary artery disease) follows with [facility] cardio Osteoarthritis History of diverticulitis 1960s History of COVID-2021--mild symptoms, resolved GERD (gastroesophageal reflux disease) controlled, stable per pt Mixed hyperlipidemia Osteoporosis Depressive disorder hx Hypothyroidism Generalized anxiety disorder hx Metabolic syndrome Hypertension controlled, stable per pt Urinary incontinence, mixed Iron deficiency anemia recent iron infusion 12/27/24 Surgical History History of esophagogastroduodenoscopy (EGD) H/O local excision of skin lesion top of head 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 History of dilatation and curettage History of hysterectomy with unilateral oophorectomy History of repair of left rotator cuff History of cholecystectomy History of appendectomy age 17 History of colonoscopy History of tooth extraction partial upper History of bilateral cataract extraction History of cardiac cath 2003: 100% RCA stenosis, mild disease in Cx and LAD per [facility] cardio records Family History Daughter Family history of reaction to anesthesia "couldn't catch my breath after having my tubes tied 30yrs ago"--"I just had surgery in Sep 2023 on my breast and didnt have any issues at all" Social History Smoking Status: Never smoker Second Hand Exposure: No; Do You Dip or Chew Tobacco: No; Tobacco Cessation Education Requested by Patient: No Hx Alcohol Use: Yes Alcohol type: beer Hx Substance Use: No Preferred Language: Kinyarwanda Communication Ability: Effective 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 Physical Exam . Physical examination reveals a pleasant spry elderly female. Looks in pretty good health. Examination of the right knee and leg reveal patient ambulates independently. She does limp on the right side. She got varus alignment to her knee. Tender with medial joint line. Minimal knee effusion. Range of motion is 0-1 25. No pain at all with hip motion. She is neurologically intact. Negative straight leg raise. Constitutional WD/WN, vitals as above Respiratory normal respiratory effort, lungs clear to auscultation Cardiovascular RRR, no murmur, no edema Gastrointestinal (Abdomen) normal bowel sounds, soft, nontender, no hepatosplenomegaly Results & Data Results & Data Laboratory Results . Diagnostic Findings . X-rays of the right knee were reviewed. Shows advanced medial compartment arthritis. She got some chondrocalcinosis laterally. Diffuse osteopenia. PG Care Time/CCT Total # of Minutes Spent Total Time Spent with Patient: Total time spent is greater than 50% in coordination of care (as documented) at patient's floor/unit and/or counseling patient: Coding Level of Care Code None Diagnoses Right knee DJD M17.11 Hypothyroidism E03.9 Generalized anxiety disorder F41.1 Metabolic syndrome E88.810 Hypertension I10 Iron deficiency anemia D50.9 Depressive disorder F32.A Osteoporosis M81.0 Mixed hyperlipidemia E78.2 GERD (gastroesophageal reflux disease) K21.9 CAD (coronary artery disease) I25.10
[~2025-01-23 08:45] MED LIST changes: +BUPIVACAINE 0.25% PF 30 ML VIAL ONE
--- NOTE | 2025-01-23 08:48 | History & Physical Bridge Note ---
Date of Service January 23, 2025 History & Physical Bridge Note I have examined the patient, reviewed the History & Physical and in the interval since the performance of the History & Physical I have noted the following changes of clinical significance: no changes noted
[2025-01-23] MEDS: LR 500ML BOLUS, THEN 15ML/HR IV SCH (09:13)
[2025-01-23] MEDS: LR 60ML/HR IV SCH (09:30)
[2025-01-23] MEDS: dexAMETHasone**PF** 10 MG/ML VIAL ONE (09:30)
[2025-01-23] MEDS: CeleBREX 200 MG CAP PO SCH (09:31)
[2025-01-23] MEDS: ACETAMINOPHEN 500 MG TAB PO SCH ×2 (09:31→15:46)
[2025-01-23] MEDS: FAMOTIDINE 20 MG TAB PO SCH (09:31)
[2025-01-23] MEDS: METOCLOPRAMIDE HCL 10 MG TABLET PO SCH (09:32)
[2025-01-23] MEDS: dexAMETHasone**PF** 10 MG/ML VIAL IV ONE (09:32)
[2025-01-23] MEDS ORDERED: fentaNYL citrate PF 100 MCG/2 ML VIAL ONE (09:41)
[2025-01-23] MEDS ORDERED: MIDAZOLAM HCL 1 MG/ML 2ML VIAL ONE (09:41)
[2025-01-23] MEDS ORDERED: fentaNYL citrate PF 100 MCG/2 ML VIAL IV PRN (10:16)
[2025-01-23] MEDS ORDERED: ATROPINE SULFATE 0.1 MG/ML 10ML SYR IV PRN (10:16)
[2025-01-23] MEDS ORDERED: ONDANSETRON INJ 2 MG/ML 2 ML VIAL IV PRN ×2 (10:16→14:38)
[2025-01-23] MEDS ORDERED: ePHEDrine sulfate 50 MG/ML AMP IV PRN (10:16)
--- OUTSIDE RECORDS SUMMARY | 2025-01-23 10:46 | External Medical Summary | Continuity of Care Document ---
Author Name Unknown Organization [facility] Address [address] [place] [address], [place] [address] Phone [phone] Care Team Providers Care Trading Manager Name Role Phone Rajesh Espinoza MD Care Team Information Receive [phone] Rajesh Espinoza JR., M.D Care Team Information Radio Recorder [phone] Problems Active Problems Provider Date Benign essential hypertension Oniel Mike JR DO Onset: 02/27/2009 Mixed hyperlipidemia Oniel Mike JR DO On set: 02/27/2009 Osteoporosis Oniel Mike JR DO Onset: 02/27/2009 Osteoarthritis of knee Oniel Mike JR DO Onset: 03/05/2009 Eruption Oniel Mike JR DO Onset: 05/29/2009 Disorder of cardiovascular system Oniel adam JR DO Onset: 05/29/2009 Depressive disorder Oniel Mike JR DO Ons et: 09/04/2009 Hypothyroidism Oniel Mike JR DO Onset: 10/01/2010 Generalized anxiety disorder Oniel Rossi DO Onset: 10/01/2010 Metabolic syndrome X Oniel Mike JR DO On set: 08/13/2015 Essential hypertension Oniel Mike JR DO Onset: 08/13/2015 Leukocytosis Oniel Mike JR DO Onset: 08/13/2015 Impaired fasting glycemia Oniel Mike JR DO Onset: 02/19/2016 Basal cell carcinoma of skin Oniel Rossi DO Onset: 03/05/2017 Note: Document: 03/04/17 - P athology Results Mixed urinary incontinence Oniel Mike JR, DO Onset: 11/04/2018 Iron deficiency anemia Oniel Mike JR, DO Onset: 06/27/2020 Social History Type Date Description Comments Sex Unknown Tobacco Use Reviewed: 01/11/25 Never Smoked Cigarette s Tobacco Use Reviewed: 01/11/25 Never Smoked Cigars Tobacco Use Reviewed: 01/11/25 Never Smoked A Pipe Smoking Status Reviewed: 01/11/25 Never Smoked A Pipe Smokeless Tobacco 01/11/2025 Never Used Smokeless To bacco ETOH Use Denies alcohol use Recreational Drug Use Denies Drug Use Allergies and adverse reactions Active Allergies Criticality Reaction | Severity Comments Date Sulfa drugs Unable to assess criticality 02/27/2009 Macrodantin Unable to assess criticality 02/27/2009 Medications Active Medications SIG Qnty Indications Ordering Provider Date Oxybutynin Chloride ER10mg Tablets ER 24HR take 1 tablet every day 90tabs N39.46 Oniel Mike JR, DO 12/31/[address] take 1 tablet every day 90tabs Oniel Mike JR, DO 09/11/2022 Levothyroxine Amqobj71xlm Tablets take 1 tablet by mouth every day 90tabs E03.8 Oniel Mike JR, DO 02/06/2021 Citalopram Jwihgkdcohax55cd Tablets take 1 tablet by mouth every day 90tabs F32.9 Oniel Mike JR, DO 08/24/2018 F41.1 Pravastatin Plbrel48wl Tablets take 1 tablet every day 90tabs E78.2 Oniel Mike JR, DO 04/22/[address] 2 po bid 60caps E78.2 Oniel jackson JR, DO 03/15/2012 Amlodipine Dbgqryfi8dl Tablets Take One (1) Tablet By Mouth Every Day 90tabs I10 Oniel Mike JR, DO 02/09/2009 Ldjlsyh32td Tablets 1 tab twice daily for 45 days 30tabs I25.10 Oniel Mike JR, DO Vitamin [id number] Tablets ER 1 by mouth every day 90tabs Unknown Medications Administered in Office Medication SIG Qnty Indications Ordering Provider Date Inj, methylpred acetate 1 mgInjection Juan Alberto Matos PA-C Injection Methylprednisolone Acetate 20 MGInjection Juan Alberto Matos PA-C 01/13/2022 Injection Methylprednisolone Acetate 20 MGInjection Juan Alberto Matos PA-C 10/11/2021 Injection Methylprednisolone Acetate 20 MGInjection Hakan Mckee 10/20/2019 Injection Methylprednisolone Acetate 20 MGInjection Unknown 04/25 Injection Ketorolac Trometha mine Per 15 mg/.5cc (Toradol)Injection Oniel moore JR, DO 09/29/2017 Injection Methylprednisolone Acetate 20 MGInjection Oniel Mike JR, DO 09/29/2016 Injection Methylprednisolone Acetate 20 MGInjection Oniel Mike JR, DO 10/01/2015 Injection Methylprednisolone Acetate 20 MGInjection Oniel Mike JR, DO 06/07/2015 Injection Methylprednisolone Acetate 20 MGInjection Oniel Mike JR, DO 08/28/2014 Injection Methylprednisolone Acetate 20 MGInjection Oniel Mike JR, DO 06/16/2013 Influ A (H1N1) VaccineInjection Oniel Mike JR, DO 09/04/2009 Injection Methylprednisolone Acetate 40 MGInjection Oniel Mike JR, DO 07/04/2009 Injection Methylprednisolone Acetate 40 MGInjection Juan Alberto Matos PA-C 04/20/2009 Injection Methylprednisolone Acetate 20 MGInjection Juan Alberto Matos PA-C 04/20/2009 Injection Methylprednisolone Acetate 40 MGInjection STEPHANIE Asencio 11/19/2007 Injection Methylprednisolone Acetate 40 MGInjection Anel Esposito MD 07/30/2006 Injection Methylprednisolone Acetate 40 MGInjection Anel Esposito MD 07/27/2006 Injection Dexamethasone Sodi um Phosphate, 1 MGInjection Ebenezer martin PA-C 01/29/2005 Injection Methylprednisolone Acetate 40 MGInjection Anel Esposito MD 03/18/2004 Injection Methylprednisolone Acetate 40 MGInjection Oniel Mike JR, DO 03/08/2004 Immunizations CPT Code Status Date Vaccine Lot # [id number] Given 01/11/2025 Pneumococcal Conjugate-Pr evnar 20 [id number] 53484 Given 07/06/2024 Influenza Vac, Split, Preservative Free High Dose Age 65 & > [id number] 16421 Given 08/11/2023 Influenza Vaccine High Do se 0.5ML Age 65 & > [id number] 14541 Given 09/11/2022 Influenza Vaccine High Do se 0.5ML Age 65 & > [id number] 27196 Given 11/09/2021 Moderna Covid-1 9 Vaccine 50mcg Booster-EMR Doc Only [id number] 52418 Given 07/11/2021 Influenza Vaccine High Do se 0.5ML Age 65 & > [id number] 76361 Given 12/28/2020 Moderna Sars-Co v-2 (Cov-19) vacc,100 mcg/ 0.5 mL 12Y+EMR Doc Only [id number] 64300 Given 11/29/2020 Moderna Sars-Co v-2 (Cov-19) vacc,100 mcg/ 0.5 mL 12Y+EMR Doc Only [id number] 23404 Given 06/27/2020 Influenza Vaccine High Do se 0.5ML Age 65 & > [id number] 59396 Given 06/13/2019 Influenza Vacci ne, Inactivated, Subunit, Adjuvanted, For [facility] [id number] 37234 Given 08/06/2018 Influenza Vac, Split, Preservative Free High Dose Age 65 & > [id number] 63665 Given 08/10/2017 Influenza Vac, Split, Preservative Free High Dose Age 65 & > [id number] 68326 Given 08/25/2016 Influenza Vac, Split, Preservative Free High Dose Age 65 & > [id number] 91725 Given 08/13/2015 Influenza Vac, Split, Preservative Free High Dose Age 65 & > [id number] 94049 Given 02/07/2015 Pneumococcal Conjugate-Pr evnar 13 [id number] 77072 Given 08/15/2014 Influenza Vac, Split, Preservative Free High Dose Age 65 & > [id number] 42538 Given 2013 Influenza Vac, Split, Preservative Free High Dose Age 65 & > [id number] 43856 Given 2013 Zostavax-PT Supplied [id number] 56499 Given 08/06/2012 Influenza Vac, Split, Preservative Free High Dose Age 65 & > [id number] 67080 Given 08/20/2011 Influenza Vac, Split 6 Mo nths And Older [id number] 53142 Given 07/30/2010 Influenza Vac, Split 6 Mo nths And Older [id number] 19235 Given 08/02/2008 Influenza Vac, Split 6 Mo nths And Older 77257 Given 09/28/2007 Td (Tetanus & D iphtheria) Decavac or Tenivac Age 7 & > [id number] Given 09/28/2007 Pneumococcal Vaccine/Pneu movax 23 44981 Given 08/10/2007 Influenza Vac, Split 6 Mo nths And Older 79985 Given 08/03/2007 Influenza Vac, Split 6 Mo nths And Older 18934 Given 09/29/2006 Influenza Vac, Split 6 Mo nths And Older 27314 Given 09/27/2002 Pneumococcal Vaccine/Pneu movax 23 59307 Given 09/27/2002 Influenza Vac, Split 6 Mo nths And Older 75172 Refused 06/07/2024 Sarscov2 Vaccin e 50 mcg/0.5 ML For Im Use 12 Yrs And Older 90801 Refused 06/07/2024 Shingrix [id number] Refused 11/16/2023 Sarscov2 Vaccin e 50 mcg/0.5 ML For Im Use 12 Yrs And Older 40481 Refused 03/18/2023 Moderna Sars-Co v-2 (Covid-19) Vaccine, BiValent Booster [id number] Refused 03/18/2023 Shingrix 79917 Refused 09/03/2021 Shingrix 86225 Refused 08/08/2020 Tdap (Tetanus, diphtheria & acel. pertussis) Adacel or Boostrix 41709 Refused 08/08/2020 Shingrix 43695 Refused 04/25/2019 Shingrix 88287 Refused 04/29/2018 Shingrix 29670 Refused 10/22/2017 Tdap (Tetanus, diphtheria & acel. pertussis) Adacel or Boostrix 84862 Refused 06/07/2015 Influenza Virus Vaccine, Quadrivalent, Im Use 06096 Refused 06/04/2015 Influenza Virus Vaccine, Quadrivalent, Im Use Vital Signs Date Vital Result Comment 01/11/2025 7:59am BP Systolic 116 mmHg BP Diastolic 70 mmHg Body Temperature 97.9 F Heart Rate 78 /min Respiratory Rate 18 /min Weight 152.00 lb Weight 68.947 kg 12/13/2024 9:44am BP Systolic 134 mmHg BP Diastolic 72 mmHg Body Temperature 98.1 F Heart Rate 66 /min Respiratory Rate 18 /min Weight 163.69 lb Weight 74.254 kg Results Test Acquired Date Facility Test Result H/L Range N ote Comp. Met 01/04/2025 [facility] [address] [place] [address] [phone] Glucose 92 mg/dL 70-110 1 BUN 11 mg/dL 6-25 Creatinine 0.8 mg/dL 0.5-1.2 Sodium 141 mEq/L 135-145 Potassium 3.6 mEq/L 3.5-5.0 Chloride 99 mEq/L 95-107 Co-2 32 mEq/L High 24-31 Alk Phos 59 IU/L 43-122 Alt(SGPT) 6 IU/L Low 10-40 Ast(Sgot) 10 IU/L 3-42 T.Bilirubin 0.6 mg/dL 0.1-1.3 Calcium 9.3 mg/dL 8.5-10.6 Tot.Protein 7.2 g/dL 5.8-8.0 Albumin 4.2 g/dL 3.0-5.2 Globulin 3.0 g/dL 2.0-3.4 GFR 72 ML/MIN/1.73 SQM >60 Lipid 01/04/2025 [facility] [address] [place], [place] [id number] [phone] Cholesterol 92 mg/dL 0-200 2 Triglyceride 111 mg/dL 0-150 3 HDLD 30 mg/dL See Comment 4 Measured LDL 52 mg/dL 0-130 5 Calc VLDL 22.2 mg/dL See Comment 6 Chol/HDL 3.1 RATIO See Comment 7 Non-HDL 62 mg/dL See Comment 8 Hba1c 01/04/2025 [facility] [address] [place] [address] [phone] A1c 5.40 % 4.70-6.50 9 CBC W/Diff 01/04/2025 [facility] [address] [place], [place] [id number] [phone] WBC 9.4 10^3/M3 High 3.1-9.2 RBC 4.08 10^6/M3 3.70-5.50 HGB 12.2 GR/DL 11.5-16.1 HCT 36.7 % 34.5-47.8 MCV 89.8 CUMICR 82.6-95.8 MCH 29.8 PICOGR 27.9-32.9 MCHC 33.2 % 32.6-35.4 RDW 14.1 % 11.4-14.6 PLT 296 10^3/M3 140-350 MPV 9.9 CUMICR 7.0-10.6 %Neut 62.8 % 40.0-75.0 %Lymph 28.8 % 17.0-45.0 %[place] 6.3 % 1.0-11.0 %Eos 1.5 % 0.0-6.0 %Bas[place] 0.6 % 0.0-2.0 #Neut 5.9 10^3/M3 1.5-8.0 #Lymph 2.7 10^3/M3 0.8-3.2 #[place] 0.6 10^3/M3 0.0-0.8 #Eos 0.1 10^3/m3 0.0-0.4 #[place] 0.1 10^3/m3 0.0-0.2 TSH 01/04/2025 [facility]. [address] [place] [address] [phone] TSH 0.80 uIU/mL 0.50-6.00 FRT4 01/04/2025 [facility] [address] [place] [address] [phone] FRT4 1.39 ng/dL 0.75-1.54 Sed Rate 01/04/2025 [facility] [address] [place] [address] [phone] Sed Rate 27 High 0-20 Uric Acid 01/04/2025 [facility] [address] [place] [address] [phone] Uric Acid 7.5 mg/dL 2.5-7.5 1 FASTING 2 CHOLESTEROL Less than 200mg/dl Low risk 201-239 mg/dl Borderline risk Equal to or greater 240mg/dl High risk 3 TRIGLYCERIDES Less than 150mg/dl Normal 150-199mg/dl Borderline 200-499mg/dl High Greater than 500mg/dl Very High 4 HDL <40mg/dl Elevated Risk 41-59mg/dl Risk >=60mg/dl Least Risk 5 LDL <100mg/dl Optimal 100-129mg/dl Near Optimal 130-159mg/dl Borderline High 160-189mg/dl High >=190 Very High 6 VLDL Less than 30mg/dl Normal 7 CHOL/HDL <4.0 Optimal 4.0-5.0 Borderline >6.0 High Risk 8 NON-HDL 30mg/dl higher than LDL Target 9 MEAN GLUCOSE IN mg/d L/A1c% POOR CONTROL FAIR CONTROL GOOD CONTROL EXCELLENT CONTROL 360-14 210-9 180-8 120-6 330-13 150-7 90-5 300-12 270-11 240-10 Procedures Date Code Description Status 01/11/2025 G2211 Continuation of care e/m vis it add on Completed 01/11/2025 G0009 Pneumovax Admin Completed 01/04/2025 28840 Venipuncture Routine Complet ed 12/13/2024 J1010 Inj, methylpred acetate 1 mg Completed 10/25/2024 G9919 SCRN ND Pos ND Prov Of Rec C ompleted 10/18/2024 [id number] Mammogram Completed 10/03/2024 1101F PT SCR Future Fall Risk, No Fall Or 1 W/Out Injury Completed 01/22/2023 [id number] Bone Mineral Density Test Co mpleted 09/16/2013 [id number] Colonoscopy Completed Medical Devices Description No Information Available Encounters Type Date Location Provider Dx Diagnosis Office Visit 01/11/2025 8:00a Francisco J Mike JR, DO I10 Essential (primary) hypertension E78.2 Mixed hyperlipidemia E03.8 Other specified hypo thyroidism R73.01 Impaired fasting glu cose F41.1 Generalized anxiety disorder Z23 Encounter for immuni zation Office Visit 12/13/2024 9:45a Francisco J hernández PA-C M25.571 Pain in right ankle and joints of right foot Office Visit 10/03/2024 11:30a Francisco J Mike JR, DO Z00.01 Encounter for general adult medical exam w abnormal findings Z01.411 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) w 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 findings Assessments Date Code Description Provider 01/11/2025 I10 Essential (primary) hyperten madi Oniel Mike JR, DO 01/11/2025 E78.2 Mixed hyperlipidemia Oniel FlynnArun Mike JR, DO 01/11/2025 E03.8 Other specified hypothyroidi sm Oniel Erickson Mike JR, DO 01/11/2025 R73.01 Impaired fasting glucose Omar olivera Erickson Mike JR, DO 01/11/2025 F41.1 Generalized anxiety disorder Onieljarod Mike JR, DO 01/11/2025 Z23 Encounter for immunization K justyna lFynnArun Mike JR, DO 01/04/2025 I10 Essential (primary) hyperten madi Engle Erickson Mike JR, DO 01/04/2025 I10 Essential (primary) hyperten madi Lab - [facility] 01/04/2025 E78.2 Mixed hyperlipidemia Oniel Erickson Mike JR, DO 01/04/2025 E78.2 Mixed hyperlipidemia [facility] [place] 01/04/2025 E03.8 Other specified hypothyroidi sm Oniel Erickson Mike JR, DO 01/04/2025 E03.8 Other specified hypothyroidi sm Lab - [facility] 01/04/2025 R73.01 Impaired fasting glucose Omar olivera Erickson Mike JR, DO 01/04/2025 R73.01 Impaired fasting glucose Lab - [facility] 01/04/2025 D72.829 Elevated white b lood cell count, unspecified Oniel Erickson Mike JR, DO 01/04/2025 D72.829 Elevated white b lood cell count, unspecified Lab - [facility] 01/04/2025 M25.551 Pain in right hip Oniel Erickson Mike JR, DO 01/04/2025 M25.551 Pain in right hip Lab - [place] 12/13/2024 M25.571 Pain in right an kle and joints of right foot Juan Alberto Matos PA-C 11/25/2024 I10 Essential (primary) hypertlorena Westjustin Mike JR, DO 11/25/2024 E78.2 Mixed hyperlipidemia Onieljarod Mike JR, DO 11/25/2024 F41.1 Generalized anxiety disorder Oniel Mike JR, DO 10/25/2024 I10 Essential (primary) hyperten madi Oniel Mike JR, DO 10/25/2024 E78.2 Mixed hyperlipidemia Oniel Mike JR, DO 10/25/2024 F41.1 Generalized anxiety disorder Oniel Mike JR, DO 10/03/2024 Z00.01 Encounter for ge neral adult medical examination with abnormal findings Oniel Mike JR, DO 10/03/2024 Z01.411 Encounter for gy necological examination (general) (routine) with abnormal findings Oniel Mike JR, DO 08/25/2024 I10 Essential (primary) hyperten madi Oniel Mike JR, DO 08/25/2024 E78.2 Mixed hyperlipidemia Oniel Mike JR, DO 08/25/2024 F41.1 Generalized anxiety disorder Oniel Mike JR, DO 07/25/2024 I10 Essential (primary) laurita barraza Oniel Mike JR, DO 07/25/2024 E78.2 Mixed hyperlipidemia Oniel Mike JR, DO 07/25/2024 F41.1 Generalized anxiety disorder Oniel Mike JR, DO Plan of Treatment Future Appointment(s):* 07/17/2025 9:30 am - Oniel Mike JR, DO at [facility] * 07/10/2025 7:30 am - [facility] 01/11/2025 - Oniel Mike JR, DO* I10 Essential (primary) hypertension * E78.2 Mixed hyperlipidemia * E03.8 Other specified hypothyroidism * R73.01 Impaired fasting glucose * F41.1 Generalized anxiety disorder * Z23 Encounter for immunization * All* Follow up:* Follow-up in 6 months or sooner as needed Functional Status Description No Information Available Mental Status Description No Information Available Referrals Refer to Reason for Referral Status Appt Thang e Hematology/Oncology [facility] Closed 12/24 [address] [place] [address] [phone]"
--- OUTSIDE RECORDS SUMMARY | 2025-01-23 10:47 | External Medical Summary ---
Author Name Unknown Address Unknown Organization K1C:[facility] [address] [place] [id number] Laboratory Report Ordering Provider Test Date Status JHOANNE CALVILLO 01/04/2025 07:29 Final Observation Date Value Abnormality Reference (Units ) Status TSH 01/04/2025 10:18 0.80 0.50-6.00 (uI U/mL) Final Performing Location [facility] [address] [place] [id number]
--- OUTSIDE RECORDS SUMMARY | 2025-01-23 10:47 | External Medical Summary | Continuity of Care Document ---
Author Name Unknown Organization [facility] Address [address] [place] [address], [place] [address] Phone [phone] Care Team Providers Care Grain Elevator Superintendent Name Role Phone Rajesh Espinoza MD Care Team Information Receive r [phone] Rajesh Espinoza JR., M.D Care Team Information Steel Rule Inspector [phone] Problems Active Problems Provider Date Benign essential [...] Mike JR DO Ons et: 09/04/2009 Hypothyroidism nOiel Mike JR DO Onset: 10/01/2010 Generalized anxiety [...] N39.46 Oniel Mike JR, DO 12/31/[address] take 1 tablet every day 90tabs Oniel Mike JR, DO 09/11/2022 Levothyroxine Wrdbyp01btx Tablets take 1 tablet by mouth every day 90tabs E03.8 Oniel Mike JR, DO 02/06/2021 Citalopram Howwqljdntvz39rj Tablets take 1 tablet by mouth every day 90tabs F32.9 Oniel Mike JR, DO 08/24/2018 F41.1 Pravastatin Ifoohp50uo Tablets take 1 tablet every day 90tabs E78.2 Oniel Mike JR, DO 04/22/[id number] 2 po bid 60caps E78.2 Oniel jackson JR, DO 03/15/2012 Amlodipine Fzfazuxo0zz Tablets Take One (1) Tablet By Mouth Every Day 90tabs I10 Oniel Mike JR, DO 02/09/2009 Vmbekbe51ge Tablets 1 tab twice daily for 45 days 30tabs I25.10 Oniel Mike JR, DO Vitamin [id number] Tablets ER 1 by mouth every day [...] CPT Code Status Date Vaccine Lot # 66843 Given 01/11/2025 Pneumococcal Conjugate-Pr evnar 20 [id number] 55680 Given 07/06/2024 Influenza Vac, Split, Preservative Free High Dose Age 65 & > [id number] 11642 Given 08/11/2023 Influenza Vaccine High Do se 0.5ML Age 65 & > [id number] 57544 Given 09/11/2022 Influenza Vaccine High Do se 0.5ML Age 65 & > [id number] 66378 Given 11/09/2021 Moderna Covid-1 9 Vaccine 50mcg Booster-EMR Doc Only [id number] 61816 Given 07/11/2021 Influenza Vaccine High Do se 0.5ML Age 65 & > 664756 91620 Given 12/28/2020 Moderna Sars-Co v-2 (Cov-19) vacc,100 mcg/ 0.5 mL 12Y+EMR Doc Only [id number] 76472 Given 11/29/2020 Moderna Sars-Co v-2 (Cov-19) vacc,100 mcg/ 0.5 mL 12Y+EMR Doc Only [id number] 05531 Given 06/27/2020 Influenza Vaccine High Do se 0.5ML Age 65 & > [id number] 32128 Given 06/13/2019 Influenza Vacci ne, Inactivated, Subunit, Adjuvanted, For [facility] [place] [id number] 75584 Given 08/06/2018 Influenza Vac, Split, Preservative Free High Dose Age 65 & > [id number] 83543 Given 08/10/2017 Influenza Vac, Split, Preservative Free High Dose Age 65 & > [id number] 38459 Given 08/25/2016 Influenza Vac, Split, Preservative Free High Dose Age 65 & > [id number] 46810 Given 08/13/2015 Influenza Vac, Split, Preservative Free High Dose Age 65 & > [id number] 01804 Given 02/07/2015 Pneumococcal Conjugate-Pr evnar 13 [id number] 91297 Given 08/15/2014 Influenza Vac, Split, Preservative Free High Dose Age 65 & > [id number] 68022 Given 2013 Influenza Vac, Split, Preservative Free High Dose Age 65 & > [id number] 36925 Given 2013 Zostavax-PT Supplied [id number] 698 13360 Given 08/06/2012 Influenza Vac, Split, Preservative Free High Dose Age 65 & > [id number] 01955 Given 08/20/2011 Influenza Vac, Split 6 Mo nths And Older [id number] 45284 Given 07/30/2010 Influenza Vac, Split 6 Mo nths And Older [id number] 37542 Given 08/02/2008 Influenza Vac, Split 6 Mo nths And Older 04911 Given 09/28/2007 Td (Tetanus & D iphtheria) Decavac or Tenivac Age 7 & > 33898 Given 09/28/2007 Pneumococcal Vaccine/Pneu movax 23 11141 Given 08/10/2007 Influenza Vac, Split 6 Mo nths And Older 35814 Given 08/03/2007 Influenza Vac, Split 6 Mo nths And Older 35853 Given 09/29/2006 Influenza Vac, Split 6 Mo nths And Older 30349 Given 09/27/2002 Pneumococcal Vaccine/Pneu movax 23 34421 Given 09/27/2002 Influenza Vac, Split 6 Mo nths And Older 72324 Refused 06/07/2024 Sarscov2 Vaccin e 50 mcg/0.5 ML For Im Use 12 Yrs And Older 12024 Refused 06/07/2024 Shingrix 08711 Refused 11/16/2023 Sarscov2 Vaccin e 50 mcg/0.5 ML For Im Use 12 Yrs And Older 87918 Refused 03/18/2023 Moderna Sars-Co v-2 (Covid-19) Vaccine, BiValent Booster 12y+ 38393 Refused 03/18/2023 Shingrix 14827 Refused 09/03/2021 Shingrix 62988 Refused 08/08/2020 Tdap (Tetanus, diphtheria & acel. pertussis) Adacel or Boostrix 57098 Refused 08/08/2020 Shingrix 60962 Refused 04/25/2019 Shingrix 79032 Refused 04/29/2018 Shingrix 36177 Refused 10/22/2017 Tdap (Tetanus, diphtheria & acel. pertussis) Adacel or Boostrix 73221 Refused 06/07/2015 Influenza Virus Vaccine, Quadrivalent, Im Use 31314 Refused 06/04/2015 Influenza Virus Vaccine, Quadrivalent, Im [...] H/L Range N ote Comp. Met 01/04/2025 [facility]. [address] [place] [address] [phone] Glucose 92 mg/dL 70-110 1 BUN 11 [...] GFR 72 ML/MIN/1.73 SQM >60 Lipid 01/04/2025 [facility]. 1 [place], [place] [id number] [phone] Cholesterol 92 mg/dL 0-200 2 Triglyceride 111 mg/dL 0-150 3 HDLD 30 mg/dL See Comment 4 Measured LDL 52 mg/dL 0-130 5 Calc VLDL 22.2 mg/dL See Comment 6 Chol/HDL 3.1 RATIO See Comment 7 Non-HDL 62 mg/dL See Comment 8 Hba1c 01/04/2025 [facility]. [address] [place] [address] [phone] A1c 5.40 % 4.70-6.50 9 CBC W/Diff 01/04/2025 [facility]. 1 [place], [place] [id number] [phone] WBC 9.4 10^3/M3 High 3.1-9.2 RBC 4.08 10^6/M3 3.70-5.50 HGB 12.2 GR/DL 11.5-16.1 HCT 36.7 % 34.5-47.8 MCV 89.8 CUMICR 82.6-95.8 MCH 29.8 PICOGR 27.9-32.9 MCHC 33.2 % 32.6-35.4 RDW 14.1 % 11.4-14.6 PLT 296 10^3/M3 140-350 MPV 9.9 CUMICR 7.0-10.6 %Neut 62.8 % 40.0-75.0 %Lymph 28.8 % 17.0-45.0 %[place] 6.3 % 1.0-11.0 %Eos 1.5 % 0.0-6.0 %Baso 0.6 % 0.0-2.0 #Neut 5.9 10^3/M3 1.5-8.0 #Lymph 2.7 10^3/M3 0.8-3.2 #[place] 0.6 10^3/M3 0.0-0.8 #Eos 0.1 10^3/m3 0.0-0.4 #Baso 0.1 10^3/m3 0.0-0.2 TSH 01/04/2025 [facility]. [address] [place] [address] [phone] TSH 0.80 uIU/mL 0.50-6.00 FRT4 01/04/2025 [facility]. [address] [place] [address] [phone] FRT4 1.39 ng/dL 0.75-1.54 Sed Rate 01/04/2025 [facility]. [address] [place] [address] [phone] Sed Rate 27 High 0-20 Uric Acid 01/04/2025 [facility]. [address] [place] [address] [phone] Uric Acid 7.5 mg/dL 2.5-7.5 1 FASTING [...] 240-10 Procedures Date Code Description Status 01/11/2025 G0009 Pneumovax Admin Completed 01/04/2025 13586 Venipuncture Routine Complet ed 12/13/2024 J1010 Inj, methylpred acetate 1 mg Completed 10/25/2024 G9919 SCRN ND Pos ND Prov Of Rec C ompleted 10/18/2024 [id number] Mammogram Completed 10/03/2024 1101F PT SCR Future Fall Risk, No Fall Or 1 W/Out Injury Completed 01/22/2023 [id number] Bone Mineral Density Test Co mpleted 09/16/2013 [id number] Colonoscopy Completed Medical Devices Description No Information [...] exam w abnormal findings Z01.411 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) w abnormal findings Assessments Date Code Description Provider 01/11/2025 I10 Essential (primary) hyperten madi Oniel Mike JR, DO 01/11/2025 E78.2 Mixed hyperlipidemia Oniel Mike JR, DO 01/11/2025 E03.8 Other specified hypothyroidi sm Oniel Mike JR, DO 01/11/2025 R73.01 Impaired fasting glucose Omar Mike JR, DO 01/11/2025 F41.1 Generalized anxiety disorder Oniel Mike JR, DO 01/11/2025 Z23 Encounter for immunization K justyna Mike JR, DO 01/04/2025 I10 Essential (primary) hyperten madi Lab - [facility] 01/04/2025 E78.2 Mixed hyperlipidemia Lab - [facility] 01/04/2025 E03.8 Other specified hypothyroidi sm Lab - [facility] 01/04/2025 R73.01 Impaired fasting glucose Lab - [facility] 01/04/2025 D72.829 Elevated white b lood cell count, unspecified Lab - [facility] 01/04/2025 M25.551 Pain in right hip Lab - [place] [facility] 12/13/2024 M25.571 Pain in right an kle and joints of right foot Juan Alberto Matos PA-C 11/25/2024 I10 Essential (primary) hyperten madi Oniel Mike JR, DO 11/25/2024 E78.2 Mixed hyperlipidemia Oniel Mike JR, DO 11/25/2024 F41.1 Generalized anxiety [...] Mike JR, DO 07/25/2024 I10 Essential (primary) hyperten madi Oniel Mike JR, DO 07/25/2024 E78.2 Mixed hyperlipidemia Oniel Mike JR, DO 07/25/2024 F41.1 Generalized anxiety disorder Oniel Mike JR, DO Plan of Treatment Future Appointment(s):* 07/17/2025 9:30 am - Oniel Mike JR DO at [facility] * 07/10/2025 7:30 am - [facility] 01/11/2025 - Oniel Mike JR, DO* I10 Essential (primary) hypertension * E78.2 Mixed hyperlipidemia * E03.8 Other specified hypothyroidism * R73.01 Impaired fasting glucose * F41.1 Generalized anxiety disorder * Z23 Encounter for immunization * All* Follow up:* Follow-up in 6 months or sooner as needed Functional Status Description No Information Available Mental Status Description No Information Available Referrals Refer to Dr Reason for Referral Status Appt Thang e Hematology/Oncology [facility] Cl[facility] 12/24 [address] [place] [address] [phone]"
--- OUTSIDE RECORDS SUMMARY | 2025-01-23 10:47 | External Medical Summary | Continuity of Care Document ---
Author Name Unknown Organization [facility] Address [address] [place] [address], [place] [address] Phone [phone] Care Team Providers Care Naval Aircrewman Operator Name Role Phone Rajesh Espinoza MD Care Team Information Receive r [phone] Rajesh Espinoza JR., M.D Care Team Information Health Information Provider [phone] Problems Active Problems Provider Date Benign essential [...] N39.46 Oniel Mike JR, DO 12/31/[address] take 1 tablet every day 90tabs Oniel Mike JR, DO 09/11/2022 Levothyroxine Wrgzac17hll Tablets take 1 tablet by mouth every day 90tabs E03.8 Oniel Mike JR, DO 02/06/2021 Citalopram Ikuzcrxjcrxr32pc Tablets take 1 tablet by mouth every day 90tabs F32.9 Oniel Mike JR, DO 08/24/2018 F41.1 Pravastatin Fxweuc66ij Tablets take 1 tablet every day 90tabs E78.2 Oniel Mike JR, DO 04/22/[id number] 2 po bid 60caps E78.2 Oniel jackson JR, DO 03/15/2012 Amlodipine Ccdzxujo2vg Tablets Take One (1) Tablet By Mouth Every Day 90tabs I10 Oniel Mike JR, DO 02/09/2009 Ttdetno13ig Tablets 1 tab twice daily for 45 days 30tabs I25.10 Oniel Mike JR, DO Vitamin [id number] Tablets ER 1 by mouth every day [...] CPT Code Status Date Vaccine Lot # 60873 Given 01/11/2025 Pneumococcal Conjugate-Pr evnar 20 [id number] 10260 Given 07/06/2024 Influenza Vac, Split, Preservative Free High Dose Age 65 & > [id number] 97855 Given 08/11/2023 Influenza Vaccine High Do se 0.5ML Age 65 & > [id number] 32032 Given 09/11/2022 Influenza Vaccine High Do se 0.5ML Age 65 & > [id number] 64447 Given 11/09/2021 Moderna Covid-1 9 Vaccine 50mcg Booster-EMR Doc Only [id number] 50237 Given 07/11/2021 Influenza Vaccine High Do se 0.5ML Age 65 & > [id number] 08246 Given 12/28/2020 Moderna Sars-Co v-2 (Cov-19) vacc,100 mcg/ 0.5 mL 12Y+EMR Doc Only [id number] 57455 Given 11/29/2020 Moderna Sars-Co v-2 (Cov-19) vacc,100 mcg/ 0.5 mL 12Y+EMR Doc Only [id number] 57570 Given 06/27/2020 Influenza Vaccine High Do se 0.5ML Age 65 & > [id number] 60881 Given 06/13/2019 Influenza Vacci ne, Inactivated, Subunit, Adjuvanted, [place] [facility] [place] [id number] 73036 Given 08/06/2018 Influenza Vac, Split, Preservative Free High Dose Age 65 & > [id number] 19088 Given 08/10/2017 Influenza Vac, Split, Preservative Free High Dose Age 65 & > [id number] 24539 Given 08/25/2016 Influenza Vac, Split, Preservative Free High Dose Age 65 & > [id number] 23503 Given 08/13/2015 Influenza Vac, Split, Preservative Free High Dose Age 65 & > [id number] 53102 Given 02/07/2015 Pneumococcal Conjugate-Pr evnar 13 [id number] 04668 Given 08/15/2014 Influenza Vac, Split, Preservative Free High Dose Age 65 & > [id number] 13775 Given 2013 Influenza Vac, Split, Preservative Free High Dose Age 65 & > [id number] 67770 Given 2013 Zostavax-PT Supplied [id number] 10184 Given 08/06/2012 Influenza Vac, Split, Preservative Free High Dose Age 65 & > [id number] 62820 Given 08/20/2011 Influenza Vac, Split 6 Mo nths And Older [id number] 47829 Given 07/30/2010 Influenza Vac, Split 6 Mo nths And Older [id number] 00713 Given 08/02/2008 Influenza Vac, Split 6 Mo nths And Older 25500 Given 09/28/2007 Td (Tetanus & D iphtheria) Decavac or Tenivac Age 7 & > 32138 Given 09/28/2007 Pneumococcal Vaccine/Pneu movax 23 60317 Given 08/10/2007 Influenza Vac, Split 6 Mo nths And Older 77335 Given 08/03/2007 Influenza Vac, Split 6 Mo nths And Older 42644 Given 09/29/2006 Influenza Vac, Split 6 Mo nths And Older 13768 Given 09/27/2002 Pneumococcal Vaccine/Pneu movax 23 96270 Given 09/27/2002 Influenza Vac, Split 6 Mo nths And Older 71440 Refused 06/07/2024 Sarscov2 Vaccin e 50 mcg/0.5 ML For Im Use 12 Yrs And Older 71705 Refused 06/07/2024 Shingrix 36371 Refused 11/16/2023 Sarscov2 Vaccin e 50 mcg/0.5 ML For Im Use 12 Yrs And Older 62468 Refused 03/18/2023 Moderna Sars-Co v-2 (Covid-19) Vaccine, BiValent Booster 12y+ 41392 Refused 03/18/2023 Shingrix 13611 Refused 09/03/2021 Shingrix 30882 Refused 08/08/2020 Tdap (Tetanus, diphtheria & acel. pertussis) Adacel or Boostrix 39126 Refused 08/08/2020 Shingrix 67175 Refused 04/25/2019 Shingrix 23722 Refused 04/29/2018 Shingrix 77408 Refused 10/22/2017 Tdap (Tetanus, diphtheria & acel. pertussis) Adacel or Boostrix 47207 Refused 06/07/2015 Influenza Virus Vaccine, Quadrivalent, Im Use 77069 Refused 06/04/2015 Influenza Virus Vaccine, Quadrivalent, Im [...] H/L Range N ote Comp. Met 01/04/2025 [facility]. [address] [place] [address] [phone] Glucose 92 mg/dL 70-110 1 BUN 11 [...] GFR 72 ML/MIN/1.73 SQM >60 Lipid 01/04/2025 [facility]. [address] [place], [place] [address] [phone] Cholesterol 92 mg/dL 0-200 2 Triglyceride 111 mg/dL 0-150 3 HDLD 30 mg/dL See Comment 4 Measured LDL 52 mg/dL 0-130 5 Calc VLDL 22.2 mg/dL See Comment 6 Chol/HDL 3.1 RATIO See Comment 7 Non-HDL 62 mg/dL See Comment 8 Hba1c 01/04/2025 [facility]. [address] [place] [address] [phone] A1c 5.40 % 4.70-6.50 9 CBC W/Diff 01/04/2025 [facility]. [address] [place], [place] 27[address]39 [phone] WBC 9.4 10^3/M3 High 3.1-9.2 RBC 4.08 10^6/M3 3.70-5.50 HGB 12.2 GR/DL 11.5-16.1 HCT 36.7 % 34.5-47.8 MCV 89.8 CUMICR 82.6-95.8 MCH 29.8 PICOGR 27.9-32.9 MCHC 33.2 % 32.6-35.4 RDW 14.1 % 11.4-14.6 PLT 296 10^3/M3 140-350 MPV 9.9 CUMICR 7.0-10.6 %Neut 62.8 % 40.0-75.0 %Lymph 28.8 % 17.0-45.0 %Bryan 6.3 % 1.0-11.0 %Eos 1.5 % 0.0-6.0 %Baso 0.6 % 0.0-2.0 #Neut 5.9 10^3/M3 1.5-8.0 #Lymph 2.7 10^3/M3 0.8-3.2 #Bryan 0.6 10^3/M3 0.0-0.8 #Eos 0.1 10^3/m3 0.0-0.4 #Baso 0.1 10^3/m3 0.0-0.2 TSH 01/04/2025 [facility]. [address] [place] [address] [phone] TSH 0.80 uIU/mL 0.50-6.00 FRT4 01/04/2025 [facility]. [address] [place] [address] [phone] FRT4 1.39 ng/dL 0.75-1.54 Sed Rate 01/04/2025 [facility]. [address] [place] [address] [phone] Sed Rate 27 High 0-20 Uric Acid 01/04/2025 [facility]. 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
--- OUTSIDE RECORDS SUMMARY | 2025-01-23 10:47 | External Medical Summary ---
Author Name Unknown Address Unknown Organization K1C:[facility] [address] [place] [address] Laboratory Report Ordering Provider Test Date Status JOHANNE CALVILLO 01/04/2025 07:29 Final Observation Date Value Abnormality Reference (Units ) Status ESR 01/04/2025 10:35 27 Above high normal 0-20 Final Performing Location [facility] [address] [place] [address]
--- OUTSIDE RECORDS SUMMARY | 2025-01-23 10:47 | External Medical Summary | Continuity of Care Document ---
Author Name Unknown Organization [facility] Address [address] [place] [address], [place] [address] Phone [phone] Care Team Providers Care It Security Architect Name Role Phone Rajesh Espinoza MD Care Team Information Receive r [phone] Rajesh Espinoza JR., M.D Care Team Information Visual Associate [phone] Problems Active Problems Provider Date Benign essential [...] N39.46 Oniel Mike JR, DO 12/31/[address] take 1 tablet every day 90tabs Oniel Mike JR, DO 09/11/2022 Levothyroxine Mgwkuu45bhp Tablets take 1 tablet by mouth every day 90tabs E03.8 Oniel Mike JR, DO 02/06/2021 Citalopram Lmvjcvttvjqy79xc Tablets take 1 tablet by mouth every day 90tabs F32.9 Oniel Mike JR, DO 08/24/2018 F41.1 Pravastatin Kzvbsd34sh Tablets take 1 tablet every day 90tabs E78.2 Oniel Mike JR, DO 04/22/[id number] 2 po bid 60caps E78.2 Oniel jackson JR, DO 03/15/2012 Amlodipine Quluiimr3yu Tablets Take One (1) Tablet By Mouth Every Day 90tabs I10 Oniel Mike JR, DO 02/09/2009 Ugntusf82fk Tablets 1 tab twice daily for 45 days 30tabs I25.10 Oniel Mike JR, DO Vitamin [id number] Tablets ER 1 by mouth every day [...] CPT Code Status Date Vaccine Lot # 70230 Given 01/11/2025 Pneumococcal Conjugate-Pr evnar 20 [id number] 93221 Given 07/06/2024 Influenza Vac, Split, Preservative Free High Dose Age 65 & > [id number] 71447 Given 08/11/2023 Influenza Vaccine High Do se 0.5ML Age 65 & > [id number] 25026 Given 09/11/2022 Influenza Vaccine High Do se 0.5ML Age 65 & > [id number] 07012 Given 11/09/2021 Moderna Covid-1 9 Vaccine 50mcg Booster-EMR Doc Only [id number] 31030 Given 07/11/2021 Influenza Vaccine High Do se 0.5ML Age 65 & > [id number] 68962 Given 12/28/2020 Moderna Sars-Co v-2 (Cov-19) vacc,100 mcg/ 0.5 mL 12Y+EMR Doc Only [id number] 80009 Given 11/29/2020 Moderna Sars-Co v-2 (Cov-19) vacc,100 mcg/ 0.5 mL 12Y+EMR Doc Only [id number] 78224 Given 06/27/2020 Influenza Vaccine High Do se 0.5ML Age 65 & > [id number] 44372 Given 06/13/2019 Influenza Vacci ne, Inactivated, Subunit, Adjuvanted, For [facility] [place] [id number] 27361 Given 08/06/2018 Influenza Vac, Split, Preservative Free High Dose Age 65 & > [id number] 35150 Given 08/10/2017 Influenza Vac, Split, Preservative Free High Dose Age 65 & > [id number] 02658 Given 08/25/2016 Influenza Vac, Split, Preservative Free High Dose Age 65 & > [id number] 14188 Given 08/13/2015 Influenza Vac, Split, Preservative Free High Dose Age 65 & > [id number] 65208 Given 02/07/2015 Pneumococcal Conjugate-Pr evnar 13 [id number] 77388 Given 08/15/2014 Influenza Vac, Split, Preservative Free High Dose Age 65 & > [id number] 00996 Given 2013 Influenza Vac, Split, Preservative Free High Dose Age 65 & > [id number] 57495 Given 2013 Zostavax-PT Supplied [id number] 14138 Given 08/06/2012 Influenza Vac, Split, Preservative Free High Dose Age 65 & > [id number] 60014 Given 08/20/2011 Influenza Vac, Split 6 Mo nths And Older [id number] 75497 Given 07/30/2010 Influenza Vac, Split 6 Mo nths And Older [id number] 18123 Given 08/02/2008 Influenza Vac, Split 6 Mo nths And Older 72631 Given 09/28/2007 Td (Tetanus & D iphtheria) Decavac or Tenivac Age 7 & > 46547 Given 09/28/2007 Pneumococcal Vaccine/Pneu movax 23 46262 Given 08/10/2007 Influenza Vac, Split 6 Mo nths And Older 81287 Given 08/03/2007 Influenza Vac, Split 6 Mo nths And Older 77030 Given 09/29/2006 Influenza Vac, Split 6 Mo nths And Older 26101 Given 09/27/2002 Pneumococcal Vaccine/Pneu movax 23 54655 Given 09/27/2002 Influenza Vac, Split 6 Mo nths And Older 56953 Refused 06/07/2024 Sarscov2 Vaccin e 50 mcg/0.5 ML For Im Use 12 Yrs And Older 10804 Refused 06/07/2024 Shingrix 22932 Refused 11/16/2023 Sarscov2 Vaccin e 50 mcg/0.5 ML For Im Use 12 Yrs And Older 85103 Refused 03/18/2023 Moderna Sars-Co v-2 (Covid-19) Vaccine, BiValent Booster 12y+ 60886 Refused 03/18/2023 Shingrix 66095 Refused 09/03/2021 Shingrix 44148 Refused 08/08/2020 Tdap (Tetanus, diphtheria & acel. pertussis) Adacel or Boostrix 43603 Refused 08/08/2020 Shingrix 16196 Refused 04/25/2019 Shingrix 00920 Refused 04/29/2018 Shingrix 77197 Refused 10/22/2017 Tdap (Tetanus, diphtheria & acel. pertussis) Adacel or Boostrix 28007 Refused 06/07/2015 Influenza Virus Vaccine, Quadrivalent, Im Use 79623 Refused 06/04/2015 Influenza Virus Vaccine, Quadrivalent, Im [...] H/L Range N ote Comp. Met 01/04/2025 [facility]. [address] [place] [address] [phone] Glucose 92 mg/dL 70-110 1 BUN 11 [...] GFR 72 ML/MIN/1.73 SQM >60 Lipid 01/04/2025 [facility]. [address] [place], [place] [address] [phone] Cholesterol 92 mg/dL 0-200 2 Triglyceride 111 mg/dL 0-150 3 HDLD 30 mg/dL See Comment 4 Measured LDL 52 mg/dL 0-130 5 Calc VLDL 22.2 mg/dL See Comment 6 Chol/HDL 3.1 RATIO See Comment 7 Non-HDL 62 mg/dL See Comment 8 Hba1c 01/04/2025 [facility]. [address] [place] [address] [phone] A1c 5.40 % 4.70-6.50 9 CBC W/Diff 01/04/2025 [facility]. [address] [place], [place] 5265839 [phone] WBC 9.4 10^3/M3 High 3.1-9.2 RBC 4.08 10^6/M3 3.70-5.50 HGB 12.2 GR/DL 11.5-16.1 HCT 36.7 % 34.5-47.8 MCV 89.8 CUMICR 82.6-95.8 MCH 29.8 PICOGR 27.9-32.9 MCHC 33.2 % 32.6-35.4 RDW 14.1 % 11.4-14.6 PLT 296 10^3/M3 140-350 MPV 9.9 CUMICR 7.0-10.6 %Neut 62.8 % 40.0-75.0 %Lymph 28.8 % 17.0-45.0 %Spink 6.3 % 1.0-11.0 %Eos 1.5 % 0.0-6.0 %Baso 0.6 % 0.0-2.0 #Neut 5.9 10^3/M3 1.5-8.0 #Lymph 2.7 10^3/M3 0.8-3.2 #Spink 0.6 10^3/M3 0.0-0.8 #Eos 0.1 10^3/m3 0.0-0.4 #Baso 0.1 10^3/m3 0.0-0.2 TSH 01/04/2025 [facility]. [address] [place] [address] [phone] TSH 0.80 uIU/mL 0.50-6.00 FRT4 01/04/2025 [facility]. [address] [place] [address] [phone] FRT4 1.39 ng/dL 0.75-1.54 Sed Rate 01/04/2025 [facility] [address] [place] [address] [phone] Sed Rate 27 High 0-20 Uric Acid 01/04/2025 [facility] 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
--- OUTSIDE RECORDS SUMMARY | 2025-01-23 10:47 | External Medical Summary | Continuity of Care Document ---
Author Name Unknown Organization [facility] er, Address [address] [place] [address] Phone [phone] Care Team Providers Care Market Development Executive Name Role Phone Rajesh Espinoza MD Care Team Information Receive [phone] Rajesh Espinoza JR., M.D Care Team Information Manager Rn [phone] Problems Active Problems Provider Date Benign essential hypertension Oniel Mike JR DO Onset: 02/27/2009 Mixed hyperlipidemia Oniel Mike JR, DO On set: 02/27/2009 Osteoporosis Oniel Mike [...] N39.46 Oniel Mike JR, DO 12/31/[address] take 1 tablet every day 90tabs Oniel Mike JR, DO 09/11/2022 Levothyroxine Vpyjwp02dqj Tablets take 1 tablet by mouth every day 90tabs E03.8 Oniel Mike JR, DO 02/06/2021 Citalopram Wuhlmzdoyvlm25bk Tablets take 1 tablet by mouth every day 90tabs F32.9 Oniel Mike JR, DO 08/24/2018 F41.1 Pravastatin Lkpfeg00mt Tablets take 1 tablet every day 90tabs E78.2 Oniel Mike JR, DO 04/22/[id number] 2 po bid 60caps E78.2 Oniel jackson JR, DO 03/15/2012 Amlodipine Pocgyrof8nz Tablets Take One (1) Tablet By Mouth Every Day 90tabs I10 Oniel Mike JR, DO 02/09/2009 Adslmll51zd Tablets 1 tab twice daily for 45 days 30tabs I25.10 Oniel Mike JR, DO Vitamin [id number] Tablets ER 1 by mouth every day [...] CPT Code Status Date Vaccine Lot # [id number] Given 01/11/2025 Pneumococcal Conjugate-Pr evnar 20 [id number] 66999 Given 07/06/2024 Influenza Vac, Split, Preservative Free High Dose Age 65 & > [id number] 21825 Given 08/11/2023 Influenza Vaccine High Do se 0.5ML Age 65 & > [id number] 97534 Given 09/11/2022 Influenza Vaccine High Do se 0.5ML Age 65 & > [id number] 91188 Given 11/09/2021 Moderna Covid-1 9 Vaccine 50mcg Booster-EMR Doc Only [id number] 02185 Given 07/11/2021 Influenza Vaccine High Do se 0.5ML Age 65 & > [id number] 04126 Given 12/28/2020 Moderna Sars-Co v-2 (Cov-19) vacc,100 mcg/ 0.5 mL 12Y+EMR Doc Only [id number] 80824 Given 11/29/2020 Moderna Sars-Co v-2 (Cov-19) vacc,100 mcg/ 0.5 mL 12Y+EMR Doc Only [id number] 72500 Given 06/27/2020 Influenza Vaccine High Do se 0.5ML Age 65 & > [id number] 10086 Given 06/13/2019 Influenza Vacci ne, Inactivated, Subunit, Adjuvanted, For [facility] [id number] 79962 Given 08/06/2018 Influenza Vac, Split, Preservative Free High Dose Age 65 & > [id number] 00835 Given 08/10/2017 Influenza Vac, Split, Preservative Free High Dose Age 65 & > [id number] 76486 Given 08/25/2016 Influenza Vac, Split, Preservative Free High Dose Age 65 & > [id number] 90731 Given 08/13/2015 Influenza Vac, Split, Preservative Free High Dose Age 65 & > [id number] 39811 Given 02/07/2015 Pneumococcal Conjugate-Pr evnar 13 [id number] 03722 Given 08/15/2014 Influenza Vac, Split, Preservative Free High Dose Age 65 & > [id number] 20576 Given 2013 Influenza Vac, Split, Preservative Free High Dose Age 65 & > [id number] 46286 Given 2013 Zostavax-PT Supplied [id number] 94595 Given 08/06/2012 Influenza Vac, Split, Preservative Free High Dose Age 65 & > [id number] 38831 Given 08/20/2011 Influenza Vac, Split 6 Mo nths And Older [id number] 63117 Given 07/30/2010 Influenza Vac, Split 6 Mo nths And Older [id number] 73022 Given 08/02/2008 Influenza Vac, Split 6 Mo nths And Older 13540 Given 09/28/2007 Td (Tetanus & D iphtheria) Decavac or Tenivac Age 7 & > 69197 Given 09/28/2007 Pneumococcal Vaccine/Pneu movax 23 37212 Given 08/10/2007 Influenza Vac, Split 6 Mo nths And Older 87812 Given 08/03/2007 Influenza Vac, Split 6 Mo nths And Older 43606 Given 09/29/2006 Influenza Vac, Split 6 Mo nths And Older 38489 Given 09/27/2002 Pneumococcal Vaccine/Pneu movax 23 50568 Given 09/27/2002 Influenza Vac, Split 6 Mo nths And Older 05554 Refused 06/07/2024 Sarscov2 Vaccin e 50 mcg/0.5 ML For Im Use 12 Yrs And Older 71009 Refused 06/07/2024 Shingrix 17602 Refused 11/16/2023 Sarscov2 Vaccin e 50 mcg/0.5 ML For Im Use 12 Yrs And Older 16536 Refused 03/18/2023 Moderna Sars-Co v-2 (Covid-19) Vaccine, BiValent Booster 12y+ 11653 Refused 03/18/2023 Shingrix 58525 Refused 09/03/2021 Shingrix 57102 Refused 08/08/2020 Tdap (Tetanus, diphtheria & acel. pertussis) Adacel or Boostrix 44072 Refused 08/08/2020 Shingrix 33890 Refused 04/25/2019 Shingrix 34959 Refused 04/29/2018 Shingrix 83984 Refused 10/22/2017 Tdap (Tetanus, diphtheria & acel. pertussis) Adacel or Boostrix 80915 Refused 06/07/2015 Influenza Virus Vaccine, Quadrivalent, Im Use 01003 Refused 06/04/2015 Influenza Virus Vaccine, Quadrivalent, Im [...] Range N ote Comp. Met 01/04/2025 [facility]. [address] [place], [place] [id number] [phone] Glucose 92 mg/dL 70-110 1 BUN 11 [...] 72 ML/MIN/1.73 SQM >60 Lipid 01/04/2025 [facility] [address] [place] [address] [phone] Cholesterol 92 mg/dL 0-200 2 Triglyceride 111 mg/dL 0-150 3 HDLD 30 mg/dL See Comment 4 Measured LDL 52 mg/dL 0-130 5 Calc VLDL 22.2 mg/dL See Comment 6 Chol/HDL 3.1 RATIO See Comment 7 Non-HDL 62 mg/dL See Comment 8 Hba1c 01/04/2025 [facility] [address] [place] [address] [phone] A1c 5.40 % 4.70-6.50 9 CBC W/Diff 01/04/2025 [facility] [address] [place] [address] [phone] WBC 9.4 10^3/M3 High 3.1-9.2 RBC 4.08 10^6/M3 3.70-5.50 HGB 12.2 GR/DL 11.5-16.1 HCT 36.7 % 34.5-47.8 MCV 89.8 CUMICR 82.6-95.8 MCH 29.8 PICOGR 27.9-32.9 MCHC 33.2 % 32.6-35.4 RDW 14.1 % 11.4-14.6 PLT 296 10^3/M3 140-350 MPV 9.9 CUMICR 7.0-10.6 %Neut 62.8 % 40.0-75.0 %Lymph 28.8 % 17.0-45.0 %Hamlin 6.3 % 1.0-11.0 %Eos 1.5 % 0.0-6.0 %Baso 0.6 % 0.0-2.0 #Neut 5.9 10^3/M3 1.5-8.0 #Lymph 2.7 10^3/M3 0.8-3.2 #Hamlin 0.6 10^3/M3 0.0-0.8 #Eos 0.1 10^3/m3 0.0-0.4 #Baso 0.1 10^3/m3 0.0-0.2 TSH 01/04/2025 [facility]. [address] [place] [address] [phone] TSH 0.80 uIU/mL 0.50-6.00 FRT4 01/04/2025 [facility] [address] [place] [address] [phone] FRT4 1.39 ng/dL 0.75-1.54 Sed Rate 01/04/2025 [facility] [address] [place] [address] [phone] Sed Rate 27 High 0-20 Uric Acid 01/04/2025 [facility] 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 Assessments [...] DO 01/11/2025 Z23 Encounter for immunization K lorenajarod Mike JR, DO 01/04/2025 I10 Essential (primary) hyperten madi Onieljustin Mike JR, DO 01/04/2025 I10 Essential (primary) hyperten madi Lab - [place] 01/04/2025 E78.2 Mixed hyperlipidemia Onieljarod Mike JR, DO 01/04/2025 E78.2 Mixed hyperlipidemia Lab [place] 01/04/2025 E03.8 Other specified hypothyroidi Onieljarod Mike JR, DO 01/04/2025 E03.8 Other specified hypothyroidi sm Lab - [place] 01/04/2025 R73.01 Impaired fasting glucose Omar olivera Erickson Mike JR, DO 01/04/2025 R73.01 Impaired fasting glucose Lab - [place] 01/04/2025 D72.829 Elevated white b lood cell count, unspecified Onieljarod Mike JR, DO 01/04/2025 D72.829 Elevated white b lood cell count, unspecified Lab - [place] 01/04/2025 M25.551 Pain in right hip Oniel Mike JR, DO 01/04/2025 M25.551 Pain in right hip Lab - [place] 12/13/2024 M25.571 Pain in right an kle and joints of right foot Juan Alberto Matos PA-C 11/25/2024 I10 Essential (primary) laurita barraza Oniel Mike JR, DO 11/25/2024 E78.2 Mixed [...] Mike JR, DO 07/25/2024 I10 Essential (primary) hypertlorena madi Mike JR, DO 07/25/2024 E78.2 Mixed hyperlipidemia Oniel Mike JR, DO 07/25/2024 F41.1 Generalized anxiety disorder Oniel Mike JR, Plan of Treatment Future Appointment(s):* 07/17/2025 9:30 am - Oniel Mike JR, DO at [place] * 07/10/2025 7:30 am - [facility] [place] [facility] [place] 01/11/2025 - Oniel Mike JR, DO* I10 [...] Thang e Hematology/Oncology [facility] Closed 12/24 [address] [place] [address] [phone]"
--- OUTSIDE RECORDS SUMMARY | 2025-01-23 10:47 | External Medical Summary | Summary of Care ---
Author Name Unknown Organization [facility] Address [address] [place] [address] Phone [phone] Care Team Providers Care Insurance And Benefits Clerk Name Role Phone Cee Rowley DO, Kenneth Primary Care Provider [phone] Encounter Details Date Type Department Care Team (Late st Contact Info) Description 01/04/2025 Orders Only Unspecified Department Oniel Mike Jr., DO [address] [facility] [place] [address] Allergies Active Allergy Reactions Criticality Noted Date Comments Nitrofurantoin 03/29/2004 BP elevated-"macrodantin" Sulfa Antibiotics 03/29/2004 hives documented as of this encounter (statuses as of 01/04/2025) Medications FISH OIL 1000 MG PO CPDR Take 1 Capsule by mouth in the morning and 1 Capsule before bedtime. Active CELEXA 40 MG PO TABS Take 1 Tablet by mouth every night at bedtime. Active ASPIRIN 81 MG PO TABS Take 1 Tablet by mouth in the morning. Active AMLODIPINE BESYLATE 5 MG PO TABS Take 1 Tablet by mouth every evening. Active Pravastatin Sodium 80 MG TabletIndicatio ns:Hyperlipidem ia with target LDL less than 70 Take 1 Tab by mouth daily. 34 Tab 5 11/04/2017 Active Oxybutynin Chloride ER 10 MG Oral Tablet Extended Release 24 Hour (DITROPAN XL) Take 1 Tablet by mouth in the morning. 10/09/2020 Active Levothyroxine Sodium 88 MCG Oral Tablet Take 1 Tablet by mouth daily first thing in the morning. 02/06/2021 Active Cyanocobalamin ER 1000 MCG Oral Tablet Extended Release Take 1 Tablet by mouth in the morning. Active Pantoprazole Sodium 40 MG Oral Tablet Delayed Release (Protonix) Take 1 Tablet by mouth in the morning. 12/31/2023 Active Naproxen 500 MG Oral Tablet Delayed Release Take 1 Tablet by mouth 2 times a day with morning and evening meals. 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 10/22/2015 Hypothyroidism 10/22/2015 Hyperlipidemia with target LDL less than 70 08/26 Overview (02/25/2016): ICD-10 update of inactive term HTN, goal below 140/80 08/31/2013 Other specified congenital cystic kidney disease Hematuria Overview (07/27/2017): ICD-10 update of inactive term Urinary tract infection, site not specified HTN, goal below 150/90 documented as of this encounter (statuses as of 01/04/2025) Resolved Problems Problem Noted Date Diagnosed Date Resolved Date Coronary atherosclerosis of [place] coronary artery 08/31/2013 10/22/2015 Aortic valve stenosis 08/31/20132013 Hypothyroidism 08/31/2013 10/22/2015 documented as of this encounter (statuses as of 01/04/2025) Immunizations Name Administration Dates Next Due Pneumococcal Conjugate Vacc, 13 Valent (Prevnar) 02/07/2015 Pneumococcal Polysaccharide PPV23 (Pneumovax) 09/28/2007,09/27/2007,09/27/2002,09/26 Season Influenza, Quad, PF, Adjuvanted, 65+ Yrs, IM (FLUAD) 07/06/2020 Seasonal Influenza Vac., MDV , IM, 0.5 mL (Fluzone) 08/20/2011,07/30/2010,08/02/2008,08/10,08/03/2007,09/29/2006,09/28/2006 ,09/27/2002,09/26/2002 Seasonal Influenza, High Dos e, Trivalent, PF, IM (Fluzone HD) 08/06/2018,08/10/2017,08/25/2016,08/13,08/15/2014,2013,08/06/2012 Seasonal Influenza, Trivalen t, Adjuvanted, 65+ YRS, PF, (Fluad) 06/13/2019 TD - Tetanus/Diptheria (ADULT) 09/28/2007,2006 Varicella Zoster Vaccine (Adult) 2013 documented as of this encounter Social History Tobacco Use Types Packs/Day Years Used Date Smoking Tobacco: Never Smokeless Tobacco: Never Alcohol Use Standard Drinks/Week Comments Yes 0 (1 standard drink = 0.6 oz pur e alcohol) rare socially Comments No Sex and Gender Information Value Date Recorded Sex Assigned at Not on file Legal Sex Female 5:50 AM EST Gender Identity Not on file Sexual Orientation Not on file documented as of this encounter Plan of Treatment Upcoming Encounters Date Type Department Care Team (Late st Contact Info) Description 02/20/2025 12:00 PM EDT Laboratory Laboratory, [place] [address] [facility] [address] [place] [id number] [place], [facility] [address] [facility] [address] [place] [address] 02/21/2025 11:30 AM EDT Office Visit Hematology/Oncology, [facility] [address] [place] [address] Tamiko Sellers CRNP [address] [facility] [place], [place] [id number] Scheduled Procedures Name Priority Associated Diagnoses Date/Ti me COLONOSCOPY FLEXIBLE PROXIMA L DIAGNOSTIC Recall Special screening for malignant neoplasms, colon Health Maintenance Due Date Last Done Comments Depression Screening 1947 Albumin/Creatinine Ratio 1953 DTap/Tdap Vaccines (1 - Tdap) 09/29/2007 09/28/2007, 09/28/2007, 09/27/2007, Additional history exists Zoster Vaccines (2 of 3) 08/30/2013 2013 COVID-19 Vaccine (3 - season) 2024 12/28/2020, 11/29/2020 TSH 01/04/2026 01/04/2025, 06/26, 04/22/2024, Additional history exists DXA Scan 01/22/2030 01/22/2023, 12/24, 09/15/2016, Additional history exists Pneumococcal Vaccine: 50+ Years Completed 02/07/2015, 09/28/2007, 09/27/2007, Additional history exists Influenza Vaccine (FLU shot) Completed 08/2024, 07/06/2024, 08/11/2023, Additional history exists HPV (Gardasil) Vaccine Aged Out No lo nger eligible based on patient's age to complete this topic Hepatitis B Vaccine Aged Out No longe r eligible based on patient's age to complete this topic MENINGOCOCCAL (MENACTRA/MENVEO) Aged Out No longer eligible based on patient's age to complete this topic Meningitis B Vaccine (Bexsero/Trumemba) Aged Out No longer eligible based on patient's age to complete this topic documented as of this encounter Medical Devices Implanted Type Area Joinery Setter Out Device Identifier Shelf Expiration Date Model / Serial / Lot [place] Pushlock 4.5x24mm - [id number] Implanted:Qty: 2 on 05/09/2020 by Rajesh Espinoza MD at OR [facility] Left: Shoulder [employer] 09/24/2020 [id number] / / [id number] Liftopia [employer] Composite X5 - [id number] Implanted:Qty: 2 on 05/09/2020 by Rajesh Espinoza MD at OR [facility] Left: Shoulder [employer] 02/22/2021 [id number] / / [id number] documented as of this encounter Procedures Procedure Name Priority Date/Time Associated Diagnosis Comments FRT4 - OUTSIDE LAB Routine 01/04/2025 7: 29 AM EDT A1C - OUTSIDE LAB Routine 01/04/2025 7:2 9 AM EDT COMPREHENSIVE METABOLIC PANEL Routine 01/04/2025 7:29 AM EDT CBC Routine 01/04/2025 7:29 AM EDT ERYTHROCYTE SEDIMENTATION RATE (ESR) Routine 01/04/2025 7:29 AM EDT URIC ACID Routine 01/04/2025 7:29 AM EDT TSH Routine 01/04/2025 7:29 AM EDT LIPID PANEL WITHOUT DIRECT LDL Routine 01/04/2025 7:29 AM EDT documented in this encounter Results * A1C - OUTSIDE LAB (01/04/2025 7:29 AM EDT) A1C - OUTSIDE LAB 5.40 4.70 - 6.50 % 01/04/2025 11:49 AM EDT [facility] Comment: Document delivery by Kristen on behalf of [facility] MEAN GLUCOSE IN mg/dL/A1c% POOR CONTROL FAIR CONTROL GOOD CONTROL EXCELLENT CONTROL 360-14 210-9 180-8 120-6 330-13 150-7 90-5 300-12 270-11 240-10 01/04/2025 7:29 AM EDT Oniel Mike Jr., DO LABORATORY Final Res ult [facility] [address] [place] [address] * (ABNORMAL) COMPREHENSIVE METABOLIC PANEL (01/04/2025 7:29 AM EDT) GLUCOSE 92 70 - 110 MG/DL 01/04/2025 10:11 AM EDT [facility] Comment:Document delivery by Kristen on behalf of [facility] BUN 11 6 - 25 MG/DL 01/04/2025 10:11 AM EDT [facility] Comment:Document delivery by Kristen on behalf of [facility] CREATININE 0.8 0.5 - 1.2 MG/DL 01/04/2025 10:11 AM EDT [facility] Comment:Document delivery by Kristen on behalf of [facility] SODIUM 141 135 - 145 MEQ/L 01/04/2025 10:11 AM EDT [facility] Comment:Document delivery by Kristen on behalf of [facility] POTASSIUM 3.6 3.5 - 5.0 MEQ/L 01/04/2025 10:11 AM EDT [facility] Comment:Document delivery by Kristen on behalf of [facility] CHLORIDE 99 95 - 107 MEQ/L 01/04/2025 10:11 AM EDT [facility] Comment:Document delivery by Kristen on behalf of [facility] CO2 32(H) 24 - 31 MEQ/L 01/04/2025 10:11 AM EDT [facility] Comment:Document delivery by Kristen on behalf of [facility] ALKALINE PHOSPHATASE-OUT SIDE LAB 59 43 - 122 IU/L 01/04/2025 10:11 AM EDT [facility] Comment:Document delivery by Kristen on behalf of [facility] ALT-OUTSIDE LAB 6(L) 10 - 40 IU/L 01/04/2025 10:11 AM EDT [facility] Comment:Document delivery by Kristen on behalf of [facility] AST-OUTSIDE LAB 10 3 - 42 IU/L 01/04/2025 10:11 AM EDT [facility] Comment:Document delivery by Kristen on behalf of [facility] TOTAL BILIRUBIN - OUTSIDE LAB 0.6 0.1 - 1.3 MG/DL 01/04/2025 10:11 AM EDT [facility] Comment:Document delivery by Kristen on behalf of [facility] CALCIUM 9.3 8.5 - 10.6 MG/DL 01/04/2025 10:11 AM EDT [facility] Comment:Document delivery by Kristen on behalf of [facility] TOTAL PROTEIN - OUTSIDE LAB 7.2 5.8 - 8.0 G/DL 01/04/2025 10:11 AM EDT [facility] Comment:Document delivery by Kristen on behalf of [facility] ALBUMIN - OUTSIDE LAB 4.2 3.0 - 5.2 G/DL 01/04/2025 10:11 AM EDT [facility] Comment:Document delivery by Kristen on behalf of [facility] GLOBULIN-OUTSID E LAB 3.0 2.0 - 3.4 G/DL 01/04/2025 10:11 AM EDT [facility] Comment:Document delivery by Kristen on behalf of [facility] EGFR 72 >60 ML/MIN/1.7 3 SQM 01/04/2025 10:11 AM EDT [facility] Comment:Document delivery by Kristen on behalf of [facility] 01/04/2025 7:29 AM EDT Oniel Mike Jr., DO LAB BLOOD ORDERABLES Priya l Result Performing Organization Address [facility] Co de Phone Number [facility] [address] [place] [address] * TSH (01/04/2025 7:29 AM EDT) TSH REFLEX - OUTSIDE LAB 0.80 0.50 - 6.00 uIU/mL 01/04/2025 10:18 AM EDT [facility] Comment:Document delivery by Kristen on behalf of [facility] 01/04/2025 7:29 AM EDT Oniel Mike Jr., DO LAB BLOOD ORDERABLES Priya l Result Performing Organization Address City/[facility]/ZIP Co de Phone Number [facility] [address] [place] [address] * (ABNORMAL) CBC WITH WBC DIFFERENTIAL (01/04/2025 7:29 AM EDT) WBC 9.4(H) 3.1 - 9.2 10^3/M3 01/04/2025 9:52 AM EDT [facility] Comment:Document delivery by Kristen on behalf of [facility] RBC 4.08 3.70 - 5.50 10^6/M3 01/04/2025 9:52 AM EDT [facility] Comment:Document delivery by KeyMEGHANE on behalf of [facility] HGB 12.2 11.5 - 16.1 GR/DL 01/04/2025 9:52 AM EDT [facility] Comment:Document delivery by KeyHIE on behalf of [facility] HCT 36.7 34.5 - 47.8 % 01/04/2025 9:52 AM EDT [facility] Comment:Document delivery by KeyMEGHANE on behalf of [facility] MCV 89.8 82.6 - 95.8 CU MICR 01/04/2025 9:52 AM EDT [facility] Comment:Document delivery by Kristen on behalf of [facility] MCH 29.8 27.9 - 32.9 DOC GR 01/04/2025 9:52 AM EDT [facility] Comment:Document delivery by Kristen on behalf of [facility] MCHC 33.2 32.6 - 35.4 % 01/04/2025 9:52 AM EDT [facility] Comment:Document delivery by Kristen on behalf of [facility] RDW 14.1 11.4 - 14.6 % 01/04/2025 9:52 AM EDT [facility] Comment:Document delivery by Kristen on behalf of [facility] PLT 296 140 - 350 10^3/M3 01/04/2025 9:52 AM EDT [facility] Comment:Document delivery by Kristen on behalf of [facility] MPV 9.9 7.0 - 10.6 CU MICR 01/04/2025 9:52 AM EDT [facility] Comment:Document delivery by KeyHIE on behalf of [facility] %NEUT - OUTSIDE LAB 62.8 40.0 - 75.0 % 01/04/2025 9:52 AM EDT [facility] Comment:Document delivery by KeyHIE on behalf of [facility] %LYMPH - OUTSIDE LAB 28.8 17.0 - 45.0 % 01/04/2025 9:52 AM EDT [facility] Comment:Document delivery by KeyHIE on behalf of [facility] %MONO - OUTSIDE LAB 6.3 1.0 - 11.0 % 01/04/2025 9:52 AM EDT [facility] Comment:Document delivery by Kristen on behalf of [facility] EO%-OUTSIDE LAB 1.5 0.0 - 6.0 % 01/04/2025 9:52 AM EDT [facility] Comment:Document delivery by KeyMEGHANE on behalf of [facility] BASOPHILS - OUTSIDE LAB 0.6 0.0 - 2.0 % 01/04/2025 9:52 AM EDT [facility] Comment:Document delivery by Kristen on behalf of [facility] #NEUT - OUTSIDE LAB 5.9 1.5 - 8.0 10^3/M3 01/04/2025 9:52 AM EDT [facility] Comment:Document delivery by Kristen on behalf of [facility] %LYMPH - OUTSIDE LAB 2.7 0.8 - 3.2 10^3/M3 01/04/2025 9:52 AM EDT [facility] Comment:Document delivery by JohnE on behalf of [facility] %MONO - OUTSIDE LAB 0.6 0.0 - 0.8 10^3/M3 01/04/2025 9:52 AM EDT [facility] Comment:Document delivery by Kristen on behalf of [facility] EO#-OUTSIDE LAB 0.1 0.0 - 0.4 10^3/m3 01/04/2025 9:52 AM EDT [facility] Comment:Document delivery by Kristen on behalf of [facility] Basophils Absolute-Outsi de Lab 0.1 0.0 - 0.2 10^3/m3 01/04/2025 9:52 AM EDT [facility] Comment:Document delivery by Kristen on behalf of [facility] 01/04/2025 7:29 AM EDT Oniel Mike Jr., DO LAB BLOOD ORDERABLES Priya shi Result [facility] [address] [facility] [address] [place] [address] * (ABNORMAL) ERYTHROCYTE SEDIMENTATION RATE (ESR) (01/04/2025 7:29 AM EDT) Pathologist [facility] SED RATE - OUTSIDE LAB 27(H) 0 - 20 01/04/2025 10:35 AM EDT [facility] Comment:Document delivery by Kristen on behalf of [facility] 01/04/2025 7:29 AM EDT Oniel Mike Jr., DO LAB BLOOD ORDERABLES Priya l Result Performing Organization Address City/[facility]/ZIP Co de Phone Number [facility] [address] [place] [address] * FRT4 - OUTSIDE LAB (01/04/2025 7:29 AM EDT) FRT4 - OUTSIDE LAB 1.39 0.75 - 1.54 ng/dL 01/04/2025 10:20 AM EDT [facility] Comment:Document delivery by Kristen on behalf of [facility] 01/04/2025 7:29 AM EDT Oniel Mike Jr., DO LABORATORY Final Res ult Performing Organization Address City/[facility]/ZIP Co de Phone Number [facility] [address] [facility] [address] [place] [address] * LIPID PANEL WITHOUT DIRECT LDL (01/04/2025 7:29 AM EDT) CHOLESTEROL-Out side Lab 92 0 - 200 MG/DL 01/04/2025 10:11 AM EDT [facility] Comment: Document delivery by Kristen on behalf of [facility] CHOLESTEROL Less than 200mg/dl Low risk 201-239 mg/dl Borderline risk Equal to or greater 240mg/dl High risk TRIGLYCERIDES-O UTSIDE LAB 111 0 - 150 MG/DL 01/04/2025 10:11 AM EDT [facility] Comment: Document delivery by Kristen on behalf of [facility] TRIGLYCERIDES Less than 150mg/dl Normal 150-199mg/dl Borderline 200-499mg/dl High Greater than 500mg/dl Very High HDLD - OUTSIDE LAB 30 SEE COMMENT MG/DL 01/04/2025 10:11 AM EDT [facility] Comment: Document delivery by Kristen on behalf of [facility] HDL <40mg/dl Elevated Risk 41-59mg/dl Risk >=60mg/dl Least Risk LDL (DIRECT MEASURE)-OUTSID E LAB 52 0 - 130 MG/DL 01/04/2025 10:11 AM EDT [facility] Comment: Document delivery by Kristen on behalf of [facility] LDL <100mg/dl Optimal 100-129mg/dl Near Optimal 130-159mg/dl Borderline High 160-189mg/dl High >=190 Very High CALCULATED VLDL - OUTSIDE LAB 22.2 SEE COMMENT MG/DL 01/04/2025 10:11 AM EDT [facility] Comment: Document delivery by Kristen on behalf of [facility] VLDL Less than 30mg/dl Normal HDLD - OUTSIDE LAB 3.1 SEE COMMENT RATIO 01/04/2025 10:11 AM EDT [facility] Comment: Document delivery by Kristen on behalf of [facility] CHOL/HDL <4.0 Optimal 4.0-5.0 Borderline >6.0 High Risk NON-HDL - OUTSIDE LAB 62 SEE COMMENT MG/DL 01/04/2025 10:11 AM EDT [facility] Comment: Document delivery by Kristen on behalf of [facility] NON-HDL 30mg/dl higher than LDL Target 01/04/2025 7:29 AM EDT Oniel Mike Jr., DO LAB BLOOD ORDERABLES Priya l Result [facility] [address] [place] [address] * URIC ACID (01/04/2025 7:29 AM EDT) URIC ACID-Outside Lab 7.5 2.5 - 7.5 MG/DL 01/04/2025 10:11 AM EDT [facility] Comment:Document delivery by Kristen on behalf of [facility] 01/04/2025 7:29 AM EDT us Oniel Mike Jr., DO LAB BLOOD ORDERABLES Priya l Result [facility] [address] [place] [address] documented in this encounter Care Teams Insurance And Benefits Clerk Relationship Specialty Start Date End Date Oniel Mike Jr., DO [address] [facility] [place] [address] PCP - General Family Medicine 05/14/21 documented as of this encounter
--- OUTSIDE RECORDS SUMMARY | 2025-01-23 10:47 | External Medical Summary ---
Author Name Unknown Address Unknown Organization [facility] [address] [place] [address] Laboratory Report Ordering Provider Test Date Status JOHANNE CALVILLO 01/04/2025 07:29 Final Observation Date Value Abnormality Reference (Units ) Status T4, Free 01/04/2025 10:20 1.39 0.75-1.54 (ng /dL) Final Performing Location [facility] [address] [place] [address]
--- OUTSIDE RECORDS SUMMARY | 2025-01-23 10:47 | External Medical Summary | Continuity of Care Document ---
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 [phone] Problems Active Problems Provider Date Benign essential [...] athology Results Mixed urinary incontinence Oniel Mike JR DO Onset: 11/04/2018 Iron deficiency anemia Oniel Mike JR, DO Onset: 06/27/2020 Social History Type Date Description Comments Sex Unknown Tobacco Use Reviewed: 12/13/24 Never Smoked Cigarette s Tobacco Use Reviewed: 12/13/24 Never Smoked Cigars Tobacco Use Reviewed: 12/13/24 Never Smoked A Pipe Smoking Status Reviewed: 12/13/24 Never Smoked A Pipe Smokeless Tobacco 12/13/2024 Never Used Smokeless To bacco ETOH Use [...] 90tabs N39.46 Oniel Mike JR, DO 12/31/2022 Levothyroxine [id number] Tablets take 1 tablet by mouth every day 90tabs E03.8 Oniel Mike JR, DO 02/06/2021 Citalopram Bpvkbjwksmlb75ej Tablets take 1 tablet by mouth every day 90tabs F32.9 Oniel Mike JR, DO 08/24/2018 F41.1 Pravastatin Vakvey96ro Tablets take 1 tablet every day 90tabs E78.2 Oniel Mike JR, DO 04/22/[id number] 2 po bid 60caps E78.2 Oniel jackson JR, DO 03/15/2012 Amlodipine Glzvmupf7iv Tablets Take One (1) Tablet By Mouth Every Day 90tabs I10 Oniel Mike JR, DO 02/09/2009 Xjtzylm22ez Tablets 1 tab twice daily for 45 days 30tabs I25.10 Oniel Mike JR, DO Vitamin [id number] Tablets ER 1 by mouth every day 90tabs Unknown Medications Administered in Office Medication SIG Qnty Indications Ordering Provider Date Inj, methylpred acetate 1 mgInjection Juan Alberto Matos PA-C 5 Injection Methylprednisolone Acetate 20 MGInjection Juan Alberto [...] CPT Code Status Date Vaccine Lot # [id number] Given 07/06/2024 Influenza Vac, Split, Preservative Free High Dose Age 65 & > [id number] Given 08/11/2023 Influenza Vaccine High Do se 0.5ML Age 65 & > [id number] 82330 Given 09/11/2022 Influenza Vaccine High Do se 0.5ML Age 65 & > [id number] 50049 Given 11/09/2021 Moderna Covid-1 9 Vaccine 50mcg Booster-EMR Doc Only [id number] 07850 Given 07/11/2021 Influenza Vaccine High Do se 0.5ML Age 65 & > [id number] 02482 Given 12/28/2020 Moderna Sars-Co v-2 (Cov-19) vacc,100 mcg/ 0.5 mL 12Y+EMR Doc Only [id number] 18117 Given 11/29/2020 Moderna Sars-Co v-2 (Cov-19) vacc,100 mcg/ 0.5 mL 12Y+EMR Doc Only [id number] 37866 Given 06/27/2020 Influenza Vaccine High Do se 0.5ML Age 65 & > [id number] 29358 Given 06/13/2019 Influenza Vacci ne, Inactivated, Subunit, Adjuvanted, [place] [facility] [place] [id number] 10036 Given 08/06/2018 Influenza Vac, Split, Preservative Free High Dose Age 65 & > [id number] 81418 Given 08/10/2017 Influenza Vac, Split, Preservative Free High Dose Age 65 & > [id number] 55898 Given 08/25/2016 Influenza Vac, Split, Preservative Free High Dose Age 65 & > [id number] 22159 Given 08/13/2015 Influenza Vac, Split, Preservative Free High Dose Age 65 & > [id number] 18651 Given 02/07/2015 Pneumococcal Conjugate-Pr evnar 13 [id number] 25261 Given 08/15/2014 Influenza Vac, Split, Preservative Free High Dose Age 65 & > [id number] 29635 Given 2013 Influenza Vac, Split, Preservative Free High Dose Age 65 & > [id number] 50201 Given 2013 Zostavax-PT Supplied [id number] 34292 Given 08/06/2012 Influenza Vac, Split, Preservative Free High Dose Age 65 & > [id number] 80448 Given 08/20/2011 Influenza Vac, Split 6 Mo nths And Older [id number] 85923 Given 07/30/2010 Influenza Vac, Split 6 Mo nths And Older [id number] 61649 Given 08/02/2008 Influenza Vac, Split 6 Mo nths And Older 19710 Given 09/28/2007 Td (Tetanus & D iphtheria) Decavac or Tenivac Age 7 & > 21638 Given 09/28/2007 Pneumococcal Vaccine/Pneu movax 23 31633 Given 08/10/2007 Influenza Vac, Split 6 Mo nths And Older 37454 Given 08/03/2007 Influenza Vac, Split 6 Mo nths And Older 54228 Given 09/29/2006 Influenza Vac, Split 6 Mo nths And Older 43232 Given 09/27/2002 Pneumococcal Vaccine/Pneu movax 23 22794 Given 09/27/2002 Influenza Vac, Split 6 Mo nths And Older 48962 Refused 06/07/2024 Sarscov2 Vaccin e 50 mcg/0.5 ML For Im Use 12 Yrs And Older 92048 Refused 06/07/2024 Shingrix 47115 Refused 11/16/2023 Sarscov2 Vaccin e 50 mcg/0.5 ML For Im Use 12 Yrs And Older 92548 Refused 03/18/2023 Moderna Sars-Co v-2 (Covid-19) Vaccine, BiValent Booster 12y+ 50705 Refused 03/18/2023 Shingrix 78642 Refused 09/03/2021 Shingrix 20349 Refused 08/08/2020 Tdap (Tetanus, diphtheria & acel. pertussis) Adacel or Boostrix 08314 Refused 08/08/2020 Shingrix 37845 Refused 04/25/2019 Shingrix 40118 Refused 04/29/2018 Shingrix 55968 Refused 10/22/2017 Tdap (Tetanus, diphtheria & acel. pertussis) Adacel or Boostrix 36912 Refused 06/07/2015 Influenza Virus Vaccine, Quadrivalent, Im Use 58280 Refused 06/04/2015 Influenza Virus Vaccine, Quadrivalent, Im Use Vital Signs Date Vital Result Comment 12/13/2024 9:44am BP Systolic 134 mmHg BP Diastolic 72 mmHg Body Temperature 98.1 F Heart Rate 66 /min Respiratory Rate 18 /min Weight 163.69 lb Weight 74.254 kg 10/03/2024 11:38am BP Systolic 136 mmHg BP Diastolic 86 mmHg Heart Rate 60 /min Respiratory Rate 18 /min Weight 165.00 lb Weight 74.844 kg Height 59.25 inches 4'11.25" BMI (Body Mass Index) 33.0 kg/m2 [place] Body Weight 100 lb Results Test Acquired Date Facility Test Result H/L Range N ote TSH 01/04/2025 [facility] [address] [place] [address] [phone] TSH <pending> FRT4 01/04/2025 [facility] [address] [place] [address] [phone] FRT4 <pending> Sed Rate 01/04/2025 [facility] [address] [place] [address] [phone] Sed Rate <pending> Uric Acid 01/04/2025 [facility] [address] [place] [address] [phone] Uric Acid <pending> Procedures Date Code Description Status 01/04/2025 10693 Venipuncture Routine Complet ed 12/13/2024 J1010 Inj, methylpred acetate 1 mg Completed 10/25/2024 G9919 SCRN ND Pos ND Prov Of Rec C ompleted 10/18/2024 78575164 Mammogram Completed 10/03/2024 1101F PT SCR Future Fall Risk, No Fall Or 1 W/Out Injury Completed 01/22/2023 [id number] Bone Mineral Density Test Co mpleted 09/16/2013 03016615 Colonoscopy Completed Medical Devices Description No Information Available Encounters Type Date Location Provider Dx Diagnosis Office Visit 12/13/2024 9:45a Francisco J Matos PA-C M25.571 Pain in right ankle and joints of right foot Office Visit 10/03/2024 11:30a Francisco J Mike JR, DO Z00.01 Encounter for general adult medical exam w abnormal findings Z01.411 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 for 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 science 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 exam (general) (routine) w abnormal findings Assessments Date Code Description Provider 01/04/2025 I10 Essential (primary) hyperten madi Lab - [facility] 01/04/2025 E78.2 [facility] 01/04/2025 E03.8 Other specified hypothyroidi sm Lab - [facility] 01/04/2025 R73.01 Impaired fasting glucose Lab - [facility] 01/04/2025 D72.829 Elevated white b lood cell count, unspecified Lab - [facility] 01/04/2025 M25.551 Pain in right hip Lab - [facility] 12/13/2024 M25.571 Pain in right an [...] JR, DO Plan of Treatment Future Appointment(s):* 01/11/2025 8:00 am - Oniel Mike JR, DO at [facility] 12/13/2024 - Juan Alberto Matos PA-C* M25.571 Pain in right ankle and joints of right foot* Comments:* Suspect pain in the medial aspect of the right ankle/foot is related to gout. Will treat patient empirically with 60 mg of Depo-Medrol IM in the office today. She can use Tylenol at home for pain as well if needed. No need for imaging studies such as x-ray at this time since there was no injury or trauma. Check uric acid level with next labs in December 2024. Patient to avoid eating seafood at this time since it can be a trigger for gout. Patient to return to the office later this week if pain worsens or fails to improve with the Depo-Medrol injection. Patient and daughter verbalized understanding of the assessment and plan. * All* Comments:* She verbalizes understanding of the assessment and plan. Functional Status Description No Information Available Mental Status Description No Information Available Referrals Refer to Reason for Referral Status Appt Thang e Hematology/Oncology [facility] Closed 12/[address] [place] [address] [phone]
--- OUTSIDE RECORDS SUMMARY | 2025-01-23 10:48 | External Medical Summary ---
Author Name Unknown Address Unknown Organization K1C:[facility] [address] [place] [id number] Laboratory Report Ordering Provider Test Date Status JOHANNE CALVILLO 01/04/2025 07:29 Final Observation Date Value Abnormality Reference (Units ) Status URIC ACID 01/04/2025 10:11 7.5 2.5-7.5 (MG/D L) Final Performing Location [facility] [address] [place] [address]
--- OUTSIDE RECORDS SUMMARY | 2025-01-23 10:48 | External Medical Summary ---
Author Name Unknown Address Unknown Organization [facility]:[address] [place] [address] Laboratory Report Ordering Provider Test Date Status JOHANNE CALVILLO 01/04/2025 07:29 Final Observation Date Value Abnormality Reference (Units ) Status Cholesterol 01/04/2025 10:11 92 0-200 (MG/D L) Final CHOLESTEROL
Less than 2 00mg/dl Low risk
201-239 mg/dl Borderline risk
Equal to or greater 240mg/dl High risk Triglyceride 01/04/2025 10:11 111 0-150 (MG/ DL) Final TRIGLYCERIDES
Less than 150mg/dl Normal
150-199mg/dl Borderline
200-499mg/dl High
Greater than 500mg/dl Very High HDL 01/04/2025 10:11 30 SEE COMMENT ( MG/DL) Final HDL
<40mg/dl Elevated R isk
41-59mg/dl Risk
>=60mg/dl Least Risk Cholesterol in LDL [Mass/vol ume] in Serum or Plasma 01/04/2025 10:11 52 0-130 (MG/DL) Final LDL
<100mg/dl Optimal<b r/> 100-129mg/dl Near Optimal
130-159mg/dl Borderline High
160-189mg/dl High
>=190 Very High Cholesterol in VLDL [Mass/vo lume] in Serum or Plasma 01/04/2025 10:11 22.2 SEE COMMENT (MG/DL ) Final VLDL
Less than 30mg/dl Normal HDL 01/04/2025 10:11 3.1 SEE COMMENT ( RATIO) Final CHOL/HDL
<4.0 Optimal<b r/> 4.0-5.0 Borderline
>6.0 High Risk NON-HDL 01/04/2025 10:11 62 SEE COMMENT ( MG/DL) Final NON-HDL
30mg/dl higher than LDL Target Performing Location [facility] [address] [place] [address]
--- OUTSIDE RECORDS SUMMARY | 2025-01-23 10:48 | External Medical Summary ---
Author Name Unknown Address Unknown Organization [facility]:[address] [place] [address] Laboratory Report Ordering Provider Test Date Status JOHANNE CALVILLO 01/04/2025 07:29 Final Observation Date Value Abnormality Reference (Units ) Status Glucose 01/04/2025 10:11 92 70-110 (MG/DL) Final BUN 01/04/2025 10:11 11 6-25 (MG/DL) Final Creatinine 01/04/2025 10:11 0.8 0.5-1.2 (MG/DL) Final Sodium 01/04/2025 10:11 141 135-145 (MEQ/L) Final Potassium 01/04/2025 10:11 3.6 3.5-5.0 (MEQ/L) Final Cl 01/04/2025 10:11 99 95-107 (MEQ/L) Final CO2 01/04/2025 10:11 32 Above high normal 24-31 (MEQ/L) Final Alk Phos 01/04/2025 10:11 59 43-122 (IU/L) Final ALT (Alanine aminotransferase) 01/04/2025 10:11 6 Below low normal 10-40 (IU/L) Final AST (Aspartate aminotransferase) 01/04/2025 10:11 10 3-42 (IU/L) Final Bilirubin, Total 01/04/2025 10:11 0.6 0.1-1.3 (MG/DL) Final Calcium 01/04/2025 10:11 9.3 8.5-10.6 (MG/DL) Final Protein 01/04/2025 10:11 7.2 5.8-8.0 (G/DL) Final Albumin 01/04/2025 10:11 4.2 3.0-5.2 (G/DL) Final GLOBULIN 01/04/2025 10:11 3.0 2.0-3.4 (G/DL) Final GFR (estimated) 01/04/2025 10:11 72 >60 (ML/MIN/1.73 SQM) Final Performing Location [facility] [address] [place] [address]
[2025-01-23] MEDS: ceFAZolin 2000MG 2,000 MG/15 ML SYR IV SCH (11:21)
[2025-01-23] MEDS ORDERED: ONDANSETRON INJ 2 MG/ML 2 ML VIAL ONE (11:40)
[2025-01-23] MEDS ORDERED: PROPOFOL IV EMULSION 10 MG/ML 20 ML VIAL IV ONE (11:40)
[2025-01-23] MEDS: ROPIV 0.5% 246mg, Ketorolac 30mg, EPINEPHrine 0.5mg in NSS INFIL SCH (11:55)
[2025-01-23] MEDS: ORTHO JOINT ANESTHETIC ONE (11:56)
[2025-01-23] MEDS: TRANEXAMIC ACID 1,000 MG **IV Intra-op IV SCH (12:03)
--- NOTE | 2025-01-23 13:01 | Operative Report ---
PG Post Operative Report Pre & Post Diagnosis Operation Date: 01/23/25 10:40 Pre-Op Diagnosis: Right Knee Degenerative Joint Disease Post-Op Diagnosis: Right Knee Degenerative Joint Disease I identified the patient and participated in the time-out.: Yes Procedure Operation Date: 01/23/25 10:40 Actual Procedures p Right Total Knee Arthroplasty(Right) - Ebenezer Fry MD Surgeon Ebenezer Fry MD Manager News Deshawn Valerio PA-C Estimated Blood Loss 50 Findings Consistent with Post-Op Diagnosis Operative findings were advanced right knee medial compartment DJD. She had extensive grade 4 vyzn-cr-kvno disease the medial femoral condyle medial tibial plateau with punctate hemorrhage of the medial femoral condyle and eburnation of the bone. Moderate-sized joint effusion. Specimens Right knee sent for pathology. Anesthesia Type Spinal MAC Complications none Indications The patient is an 89-year-old female now about 9 months out from right total hip replacement. Over the past 6 months she has developed a markedly increasing right knee pain discomfort described to gotten worse. She been through extensive conservative treatment provided minimal relief. She elected seed with total knee arthroplasty. Description of Procedure Operative implants consist of: 1. Biomet Vanguard size 62.5 right posterior stabilized femoral component. 2. Biomet size 63 tibial tray. 3. 10 mm posterior stabilized polyethylene insert. 4. 28 x 8 all poly patella. The patient was taken to the op room, identified, placed on the operating table in the supine position. All contact areas were appropriately padded. IV antibiotics arrived by the anesthesia team. A spinal anesthetic and adductor canal block had been provided in the holding area. Soler catheter was placed in sterile fashion. The right side turn was then placed. The right lower extremity was then prepped and draped in usual sterile fashion. The right leg was elevated and exsanguinated with use of an Esmarch and a turn was placed at 300 mmHg. An anterior approach of the right knee was then performed through a longitudinal incision centered over the patella. Sharp dissection was got through subcutaneous tissue down the extensor mechanism. A medial parapatellar arthrotomy incision was made. Some subperiosteal dissection was carried out medially. The fat pad was resected munis patella tendon. The lateral patellofemoral ligament was released. Patella subluxated laterally and the knee was flexed. The osteophytes taken off distal femur. The ACL and PCL were then released from the distal femur and the tibia subluxated anteriorly. The external treatment LYMErix then placed on the interface the tibia and adjusted 14 mm medially. The proximal tibial cut was made remove about 2 to 3 mm of bone from medial side. The tibia was sized to a size 63. Attention was then drawn to the femur. The distal femur was entered with a sharp drill. Intramedullary canal was suction. A right 5 degree valgus cutting guide was placed. The distal femoral cut was made to take an additional 3 mm of bone off distal femur. The femur was then sized to a size 62.5. The AP cutting block was pinned parallel to the epicondylar axis which was 3 degrees of external rotation. The anterior cut, anterior chamfer, posterior cut, posterior chamfer cuts were made. The box cutting guide was placed and just slight lateral and the box cut was made. The knee was flexed. The remnants of the medial and lateral menisci were excised. The osteophytes taken off the posterior aspect of femur. A trial femoral component was placed. The tibial tray was pinned Lazara external rotation and the drill and stem punch were used to create defect in proximal tibia for the tibial tray. The knee was then trialed and the 10 mm insert fit most appropriately. Attention was then drawn to the patella. The patella was cleaned of all soft tissue. Patella thickness measured 19 mm in thickness was cut down to 13. Was sized to a size 28 patella. The lug holes were drilled for the 28 patella. The lateral osteophytes removed. The knee was taken through range of motion patella tracked nicely with no thumbs test. Attention was then drawn to place the permanent components. All trial components were removed. A bone plug was placed into this femur limit blood loss. A double batch Palacos G cement was mixed. Biomet Vanguard size 62.5 right posterior Byce femoral component, size 63 tibial tray, a 10 mm posterior Byce polyethylene insert, and a 28 x 8 all poly patella then cemented in place. Knee was brought out into full extension till cement hardened. Final cement check was then performed. The pericapsular tissues were injected with a total of 100 cc of Ortho mix. Patient did receive 1 g of tranexamic acid. The tourniquet was then let down for final turn time 48 minutes. Hemostasis surgeries electrocautery. Extensor Meclomen closed with combination 1 PDS suture #1 Vicryl suture in a smqdgt-xu-gmemo fashion. Extensor Meclomen checked found be intact the subcutaneous tissue then closed with 2 Dexon suture in a buried interrupted fashion skin was closed skin chun. Leg was then cleaned and dried and a sterile dressing with Xeroform, 4 fours, sterile cast padding, Quang bandage were applied. Patient then transferred to the recovery room in stable condition. The patient tolerated procedure well and there were no complications. Deshawn Valerio, my physician assistant center director, was present for the entire procedure. His assistance was essential and required for appropriate patient positioning, prepping and draping, surgical exposure, performing the technical details of the operation, placement the implants, closure of the wound, and placement of the sterile bandage. I attest to the content of the Intraoperative Record and any orders documented therein. Any exceptions are noted below.
[2025-01-23] MEDS: METOPROLOL TARTRATE 1 MG/ML VIAL IV ONE (13:15)
[2025-01-23] MEDS: METOPROLOL TARTRATE 1 MG/ML VIAL IV STA (13:25)
--- NOTE | 2025-01-23 13:39 | XRay Report ---
XR knee RT 1 or 2V routine CLINICAL HISTORY: Postoperative evaluation. COMPARISON: Right knee radiographs August 29, 2024. FINDINGS: Alignment of the total right knee arthroplasty is anatomic. There is no periprosthetic fra cture or unexpected radiopaque foreign body. There are skin chun. IMPRESSION: Expected findings following total right knee arthroplasty. ACT 112: Negative or not required by law. Electronically signed by: Po Hassan M.D. 01/23/2025 1:38 PM
[2025-01-23] MEDS ORDERED: HYDROmorphone INJ 0.5 MG/0.5 ML SYR IV PRN (14:38)
[2025-01-23] MEDS ORDERED: MAGNESIUM HYDROXIDE SUSP 30 ML UDC PO PRN (14:38)
[2025-01-23] MEDS ORDERED: bisacodyL 10 MG SUPP PR PRN (14:38)
[2025-01-23] MEDS ORDERED: ALUMINUM/MAGNESIUM SUSP 30 ML UDC PO PRN (14:38)
[2025-01-23] MEDS ORDERED: METOCLOPRAMIDE HCL INJ 5 MG/ML 2 ML VIAL IV PRN (14:38)
[2025-01-23] MEDS ORDERED: NALOXONE HCL 0.4 MG/1 ML VIAL/CARP IV PRN (14:38)
[2025-01-23] MEDS ORDERED: oxyCODONE HCL IR 5 MG TAB (IMMEDIATE RELEASE) PO PRN (14:38)
[2025-01-23 14:41] VITALS: RESP 18
--- NOTE | 2025-01-23 15:21 | Cardiology Consultation ---
Date of Consultation January 23, 2025 Assessment & Plan (1) New onset a-fib: (2) S/P total knee arthroplasty: (3) Hypertension: Plan Patient undergoing right total knee arthroplasty today, 01/23. Post op, patient developed afib RVR while in the recovery room. It is unclear whether patient was treated with IV metoprolol. EKG demonstrating afib RVR at [address]/T wave abnormality No symptoms of CP/SOB/palpitations at the time reported. Upon arrival to telemetry 2 hours later, patient had converted to NSR. No history of atrial fibrillation. Currently NSR in the 70's Start low dose metoprolol succinate 12.5 mg daily CHADSVASC score of 5, but given this episode was short in duration in the post op setting, will not initiate anticoagulation at this time Continue on telemetry Check labs including electrolytes and TSH Repeat EKG She has a history of remote CAD with 100% occlusion of the RCA and mild disease in LAD and LCx in 2003. No anginal complaints. Continue ASA, statin Add beta annika HTN continue amlodipine and adding metoprolol Case discussed with Dr. Martel I spent a total of 45 minutes on the date of service in preparation, delivery, and documentation of the care provided to this patient, excluding any time spent in the performance of separately billed services. Lilian Iyer PA-C Department of Cardiology, [facility] This chart was completed in part utilizing Speech Voice Recognition Software. Grammatical errors, random word insertions, pronoun errors, and incomplete sentences are an occasional consequence of this system due to software limitations, ambient noise, and hardware issues. Any formal questions or concerns about the content, text, or information contained within the body of this dictation should be directly addressed to the provider for clarification. Supervising Physician Co-Signing Physician Notes I have personally performed a history and physical examination on the patient. I have reviewed the advance practitioner's documentation, and I agree with, and take responsibility for the plan of care. 89-year-old female admitted for elective right sided total knee replacement. Paroxysmal atrial fibrillation with rapid ventricular response recorded postoperatively with spontaneous conversion to sinus rhythm. Telemetry currently reveals sinus rhythm with PACs and rare PVCs. Heart rate in the 70s and 80s. Patient denies any recent history of chest pain, shortness of breath, or palpitations. No documented history of atrial fibrillation. Recommend addition of low-dose beta-annika. Will hold off on anticoagulation for the time being. Assess echocardiogram, electrolytes, and TSH. Thank you for allow me to participate in the care of your patient. Cardiology will continue to follow during hospitalization. I spent a total of 30 minutes on the date of service in preparation, delivery, and documentation of the care provided to this patient, excluding any time spent in the performance of separately billed services. Joe Martel DO, [facility] History of Present Illness Reason for Consultation: Post op Afib Requesting Physician: Dr. Fry Attending Physician: Dr. Martel History of Present Illness Patient is an 89 year old female who was admitted to [facility] today after undergoing right total knee arthroplasty with Dr. Fry. Post procedure in the PACU patient was found to be tachycardic and in new onset atrial fibrillation with RVR in the 120's. No known history of atrial fibrillation. [facility] visit in January [facility]24. History includes: 1. CAD -100% RCA, mild disease in circumflex & LAD via cath 2003 2. Hypertension 3. Hyperlipidemia 4. Mild Aortic Valve Sclerosis per last echo in Oct 2019 5. Hypothyroidism EKG reviewed from the [facility] dated today 01/23 at 12:05 demonstrating afib with HR of 123. Lateral ST/T wave abnormality noted. Between PACU and admitted on telemetry at 14:15 patient converted to alonzo DOUGLAS in the 60-80's. No afib since being on telemetry. It is unclear if she received any IV metoprolol in PACU for afib RVR. Patient denies symptoms of CP/SOB or palpitations at time of afib. She denies recent symptoms of palpitations as an outpatient. No recent chest pain or dyspnea. Is active on a regular basis. No history of DM, strokes or blood clots. Tolerated knee surgery earlier today. At time of consult, patient resting in bed comfortably. Denies acute cardiac complaints. Allergies Allergy/AdvReac Type Severity Reaction Status Date / Time nitrofurantoin Allergy Intermediate "felt Verified 01/23/25 09:01 [From Macrodantin] funny" Sulfa (Sulfonamide Allergy Intermediate Hives Verified 01/23/25 09:01 Antibiotics) Home Medications Medication Instructions Recorded Confirmed Type amlodipine 5 mg tablet (Norvasc) 5 mg PO QAM 03/25/24 01/23/25 History aspirin 81 mg tablet,delayed 81 mg PO QPM 03/25/24 01/23/25 History release citalopram 40 mg tablet (Celexa) 40 mg PO HS 03/25/24 01/23/25 History cyanocobalamin (vitamin B-12) 1,000 mcg PO QAM 03/25/24 01/23/25 History 1,000 mcg tablet,extended release levothyroxine 88 mcg capsule 88 mcg PO QAM 03/25/24 01/23/25 History oxybutynin chloride 10 mg 10 mg PO QAM 03/25/24 01/23/25 History tablet,extended release 24 hr pantoprazole 40 mg tablet,delayed 40 mg PO QAM 03/25/24 01/23/25 History release pravastatin 80 mg tablet 80 mg PO QPM 03/25/24 01/23/25 History ubidecarenone-omega 3-vit E 25 1 cap PO BID 03/25/24 01/23/25 History mg-150 (90-60) mg-200 unit capsule (Co I-83-Dkliyce E-Fish Oil) acetaminophen 500 mg tablet 1,000 mg PO TID PRN pain 01/12/25 01/23/25 History (Tylenol Extra Strength) acetaminophen 500 mg tablet 1,000 mg (2 x 500 mg) PO TID pain 01/20/25 01/23/25 Rx (Tylenol Extra Strength) 30 days #180 tabs aspirin 81 mg tablet,delayed 81 mg PO BID 45 days #90 tabs 01/20/25 01/23/25 Rx release (Lorenzo Low Dose Aspirin) cefadroxil 500 mg capsule 500 mg PO BID 7 days #14 caps 01/20/25 01/23/25 Rx ketorolac 10 mg tablet 10 mg PO TID pain 5 days #15 tabs 01/20/25 01/23/25 Rx ondansetron 4 mg disintegrating 4 mg PO Q8 PRN nausea #20 tabs 01/20/25 01/23/25 Rx tablet oxycodone 5 mg tablet 5 mg PO Q6 PRN pain #40 tabs 01/20/25 01/23/25 Rx sennosides 8.6 mg tablet (Senokot) 8.6 mg PO BID prevent constipation 01/20/25 01/23/25 Rx 14 days #28 tabs Patient History Medical History History of skin cancer top of head, removed CAD (coronary artery disease) follows with [facility] cardio Osteoarthritis History of diverticulitis 1960s History of COVID-2021--mild symptoms, resolved GERD (gastroesophageal reflux disease) controlled, stable per pt Mixed hyperlipidemia Osteoporosis Depressive disorder hx Hypothyroidism Generalized anxiety disorder hx Metabolic syndrome Hypertension controlled, stable per pt Urinary incontinence, mixed Iron deficiency anemia recent iron infusion 12/27/24 Surgical History History of esophagogastroduodenoscopy (EGD) H/O local excision of skin lesion top of head 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 History of dilatation and curettage History of hysterectomy with unilateral oophorectomy History of repair of left rotator cuff History of cholecystectomy History of appendectomy age 17 History of colonoscopy History of tooth extraction partial upper History of bilateral cataract extraction History of cardiac cath 2003: 100% RCA stenosis, mild disease in Cx and LAD per [facility] cardio records Family History Daughter Family history of reaction to anesthesia "couldn't catch my breath after having my tubes tied 30yrs ago"--"I just had surgery in Sep 2023 on my breast and didnt have any issues at all" Social History Smoking Status: Never smoker Second Hand Exposure: No; Do You Dip or Chew Tobacco: No; Tobacco Cessation Education Requested by Patient: No Hx Alcohol Use: Yes Alcohol type: beer Hx Substance Use: No Preferred Language: Armenian Communication Ability: Effective Motor Vehicle Clerk Required: No Beliefs That Will Affect Care: None Current Living Situation: Alone Other Information That Helps Us Care for You: No Feels Safe at Home: Yes Safety Concerns: Feels Safe At This Time Assistive Devices: Denture - Upper and Glasses Assistive Devices Comment: glasses prn for reading Review of Systems Review of Systems: All systems reviewed & are unremarkable except as noted in HPI & below Physical Exam Constitutional: WD/WN, vitals as above well nourished; no acute distress Neck: trachea midline, no thyromegaly normal visual inspection Respiratory: normal respiratory effort; no labored breathing Auscultation: no crackles and no rales Cardiovascular: Rate/Rhythm: regular rate and regular rhythm Heart Sounds: + murmur (I/ systolic murmur ) Vessels: no JVD Extremities: no edema (right knee wrapped) Gastrointestinal (Abdomen): normal bowel sounds, soft, nontender, no hepatosplenomegaly Skin: no rashes, warm and dry Neurologic: PERRL, EOMI, accommodation nl, no face palsy, no dysarthria Results & Data Vital Signs (Past 12 Hours) Vital Signs Temp Pulse Pulse Pulse Resp BP BP 01/23/25 14:30 36.2 C L 70 18 145/74 H 01/23/25 14:00 36.8 C 84 18 130/80 01/23/25 13:50 36.5 C 116 H 14 142/83 H 01/23/25 13:40 117 H 15 131/80 01/23/25 13:30 112 H 19 146/83 H 01/23/25 13:20 103 H 13 143/74 H 01/23/25 13:15 120 H 143/74 H 01/23/25 13:10 114 H 19 163/91 H 01/23/25 13:00 125 H 13 140/91 01/23/25 12:58 36.3 C L 130 H 14 125/86 01/23/25 09:39 201/75 H 01/23/25 09:10 36.8 C 62 18 Pulse Ox O2 Del Method O2 Flow Rate 01/23/25 14:30 90 Room Air 01/23/25 14:00 92 Room Air 01/23/25 13:50 93 Room Air 01/23/25 13:40 95 Room Air 01/23/25 13:30 97 Oxymask 2 01/23/25 13:20 96 Oxymask 2 01/23/25 13:15 01/23/25 13:10 99 Oxymask 2 01/23/25 13:00 100 Oxymask 4 01/23/25 12:58 96 Oxymask 4 01/23/25 09:39 01/23/25 09:10 98 Room Air Laboratory Results No current labs on file -- ordered 01/23/25 01/23/2525 06:59 14:59 22:59 Intake Total 1400 / 1400 Output Total 250 / 250 Balance 1150 / 1150 Intake: IV 100 / 100 Lactated Ringer's 1,000 ml @ 15 0 / 0 mls/hr IV .Q24H REPLACED BY [facility] Rx#: [id number] Tranexamic Acid / 0.7% NaCl 1, 100 / 100 000 mg In 100 ml @ 600 mls/hr IV TODAY@0600 JARRED Rx#:[id number] IV Perioperative 1300 / 1300 Output: Estimated Blood Loss 50 / 50 Urine Amount (Catheter) 200 / 200 Soler/Indwelling 200 / 200 Other: Weight 71.8 kg Weight Measurement Method Standing Scale Patient Weight 01/24/25 06:59 Weight 71.8 kg Diagnostic Findings Telemetry reviewed: Currently NSR in the 70-80's. No recurrent afib Repeat EKG - pending EKG reviewed from today - thru [facility]USE: Afib with RVR in the 120's No acute ischemic changes noted Prior outside data: Echo report reviewed dated Oct 2019: Interpretation Summary The examination is adequate to evaluate the referral indication. The primary indication after review was deemed appropriate and the examination was performed. The qualitative LV ejection fraction is 65-69% (normal). The LV wall thickness is mildly increased (concentric). No LV segmental wall motion abnormalities. The left ventricular diastolic function is normal. Nondilated cardiac chambers. Mild aortic valve sclerosis is present Medications Administered Current Inpatient Medications Acetaminophen (Acetaminophen 500 Mg Tab) 1,000 mg PO PREOP JARRED Stop: 01/23/25 18:00 Last Admin: 01/23/25 09:31 Dose: 1,000 mg Acetaminophen (Acetaminophen 500 Mg Tab) 1,000 mg PO TID JARRED Stop: 02/22/25 14:37 Al Hydrox/Mg Hydrox/Simethicone (Aluminum/Magnesium Susp 30 Ml Udc) 15 ml PO Q4H PRN PRN Reason: Heartburn Stop: 02/22/25 14:37 Amlodipine Besylate (Amlodipine Besylate 5 Mg Tab) 5 mg PO QAM JARRED Stop: 02/23/25 08:59 Ascorbic Acid (Ascorbic Acid 500 Mg Tab) 500 mg PO BIDM JARRED Stop: 02/22/25 16:59 Aspirin (Aspirin 81 Mg Ectab) 81 mg PO BID JARRED Stop: 02/22/25 20:59 Atropine Sulfate (Atropine Sulfate 0.1 Mg/Ml 10ml Syr) 0.5 mg IV Q1M PRN PRN Reason: PACU Use-HR<40 &/or Bradycardi Stop: 01/23/25 18:17 Bisacodyl (Bisacodyl 10 Mg Supp) 10 mg ND DAILY PRN PRN Reason: Constipation Stop: 02/22/25 14:37 Celecoxib (Celebrex 200 Mg Cap) 200 mg PO PREOP JARRED Stop: 01/23/25 18:00 Last Admin: 01/23/25 09:31 Dose: 200 mg Citalopram Hydrobromide (Citalopram 40 Mg Tab) 40 mg PO HS JARRED Stop: 02/22/25 20:59 Cyanocobalamin (Cyanocobalamin (B-12) 500 Mcg Tablet) 1,000 mcg PO QAM JARRED Stop: 02/23/25 08:59 Docusate Sodium (Docusate Sodium 100 Mg Cap) 100 mg PO BID JARRED Stop: 02/22/25 20:59 Ephedrine Sulfate (Ephedrine Sulfate 50 Mg/Ml Amp) 5 mg IV Q5M PRN PRN Reason: PACU Use Only-SBP<90 mmHg Stop: 01/23/25 18:17 Famotidine (Famotidine 20 Mg Tab) 20 mg PO PREOP JARRED Stop: 01/23/25 18:00 Last Admin: 01/23/25 09:31 Dose: 20 mg Fentanyl Citrate (Fentanyl Citrate Pf 100 Mcg/2 Ml Vial) 25 mcg IV Q5M PRN PRN Reason: PACU Use Only-Pain Stop: 01/23/25 18:17 Hydromorphone HCl (Hydromorphone Inj 0.5 Mg/0.5 Ml Syr) 0.5 mg IV Q4H PRN PRN Reason: Pain or Pre PT Stop: 02/06/25 14:37 Lactated Ringer's (Lr) 1,000 mls @ 60 mls/hr IV .[id number] JARRED Stop: 01/23/25 22:39 Last Admin: 01/23/25 09:30 Dose: Not Given Cefazolin Sodium (Ancef 2000mg) 2,000 mg in 15 mls @ 3.75 mls/min IV PREOP JARRED; Protocol Stop: 01/23/25 18:00 Last Admin: 01/23/25 11:21 Dose: 3.75 mls/min Ropivacaine 246 mg/ Ketorolac Tromethamine 30 mg/Epinephrine HCl 0.5 mg/ Sodium Chloride 100.7 mls @ 0 mls/hr INFIL TODAY@0600 REPLACED BY [facility]; Protocol Stop: 01/23/25 16:00 Last Admin: 01/23/25 11:55 Dose: 100.7 mls/hr Tranexamic Acid (Tranexamic Acid / 0.7% Nacl) 1,000 mg in 100 mls @ 600 mls/hr IV TODAY@0600 REPLACED BY [facility] Stop: 01/23/25 18:00 Last Infusion: 01/23/25 12:13 Dose: Infused Lactated Ringer's (Lr) 1,000 mls @ 15 mls/hr IV .Q24H REPLACED BY [facility] Stop: 01/23/25 18:00 Last Infusion: 01/23/25 11:18 Dose: Infused Cefazolin Sodium (Ancef 1000mg) 1,000 mg in 7.5 mls @ 2.5 mls/min IV Q8H REPLACED BY [facility]; Protocol Stop: 01/24/25 03:02 Dexamethasone 10 mg/ Syringe 2.5 mls @ 1 mls/min IV TODAY@08 REPLACED BY [facility] Stop: 01/24/25 08:03 Tranexamic Acid (Tranexamic Acid / 0.7% Nacl) 1,000 mg in 100 mls @ 600 mls/hr IV Q6H REPLACED BY [facility] Stop: 01/23/25 19:09 Ketorolac Tromethamine (Ketorolac Tromethamine 15 Mg/Ml Vial) 15 mg IV Q6H REPLACED BY [facility] Stop: 01/25/25 08:39 Levothyroxine Sodium (Levothyroxine Sodium 88 Mcg Tablet) 88 mcg PO DAILYBB REPLACED BY [facility] Stop: 02/23/25 06:29 Magnesium Hydroxide (Magnesium Hydroxide Susp 30 Ml Udc) 30 ml PO Q6H PRN PRN Reason: Constipation Stop: 02/22/25 14:37 Metoclopramide HCl (Metoclopramide Hcl 10 Mg Tablet) 10 mg PO PREOP REPLACED BY [facility] Stop: 01/23/25 18:00 Last Admin: 01/23/25 09:32 Dose: 10 mg Metoclopramide HCl (Metoclopramide Hcl Inj 5 Mg/Ml 2 Ml Vial) 10 mg IV Q6H PRN PRN Reason: Nausea And Vomiting Stop: 02/22/25 14:37 Multivitamins (Multivitamin Tab) 1 tab PO QAM REPLACED BY [facility] Stop: 02/23/25 08:59 Naloxone HCl (Naloxone Hcl 0.4 Mg/1 Ml Vial/Carp) 0.1 mg IV Q5M PRN PRN Reason: Oversedation/Resp Depression Stop: 02/22/25 14:37 Ondansetron HCl (Ondansetron Inj 2 Mg/Ml 2 Ml Vial) 4 mg IV ONCE PRN PRN Reason: PACU Use Only-Nausea/Vomiting Stop: 01/23/25 18:17 Ondansetron HCl (Ondansetron Inj 2 Mg/Ml 2 Ml Vial) 4 mg IV Q6H PRN PRN Reason: Nausea And Vomiting Stop: 02/22/25 14:37 Oxybutynin Chloride (Oxybutynin Chloride Xl 5 Mg Tabcr) 10 mg PO QAM REPLACED BY [facility] Stop: 02/23/25 08:59 Oxycodone HCl (Oxycodone Hcl Ir 5 Mg Tab (Immediate Release)) 5 mg PO Q6 PRN PRN Reason: pain Stop: 02/06/25 14:37 Pantoprazole Sodium (Pantoprazole 40 Mg Tab) 40 mg PO QAM REPLACED BY [facility] Stop: 02/23/25 08:59 Pravastatin Sodium (Pravastatin Sod 40 Mg Tab) 80 mg PO QPM REPLACED BY [facility] Stop: 02/22/25 20:59 Sennosides (Senna 8.6 Mg Tab) 8.6 mg PO BID REPLACED BY [facility] Stop: 02/22/25 20:59 Sennosides (Senna 8.6 Mg Tab) 17.2 mg PO HS REPLACED BY [facility] Stop: 02/22/25 20:59
[2025-01-23] MEDS: KETOROLAC TROMETHAMINE 15 MG/ML VIAL IV SCH (15:47)
[2025-01-23] MEDS: METOPROLOL SUCC 25MG EXT REL TAB PO SCH (15:57)
--- NOTE | 2025-01-23 15:58 | Anesthesiology Progress Note ---
Date of Service January 23, 2025 Anesthesia Post Procedure Vital Signs Vital Signs: Temp Pulse Pulse Pulse Resp BP BP 01/23/25 15:20 78 01/23/25 14:30 36.2 C L 70 18 145/74 H 01/23/25 14:00 36.8 C 84 18 130/80 01/23/25 13:50 36.5 C 116 H 14 142/83 H 01/23/25 13:40 117 H 15 131/80 01/23/25 13:30 112 H 19 146/83 H 01/23/25 13:20 103 H 13 143/74 H 01/23/25 13:15 120 H 143/74 H 01/23/25 13:10 114 H 19 163/91 H 01/23/25 13:00 125 H 13 140/91 01/23/25 12:58 36.3 C L 130 H 14 125/86 01/23/25 09:39 201/75 H 01/23/25 09:10 36.8 C 62 18 Pulse Ox O2 Del Method O2 Flow Rate 01/23/25 15:20 01/23/25 14:30 90 Room Air 01/23/25 14:00 92 Room Air 01/23/25 13:50 93 Room Air 01/23/25 13:40 95 Room Air 01/23/25 13:30 97 Oxymask 2 01/23/25 13:20 96 Oxymask 2 01/23/25 13:15 01/23/25 13:10 99 Oxymask 2 01/23/25 13:00 100 Oxymask 4 01/23/25 12:58 96 Oxymask 4 01/23/25 09:39 01/23/25 09:10 98 Room Air Pain Intensity Right Knee: Pain Intensity: 8 Transfer of Care Handoff Completed per policy Notes Mental Status: alert / awake / arousable and participated in evaluation Patient Amnestic to Procedure: Yes Nausea / Vomiting: adequately controlled Pain: adequately controlled Airway Patency, RR, SpO2: stable & adequate BP & HR: stable & adequate Hydration State: stable & adequate Anesthetic Complications: Pt Satisfied with anesthetic care Notes: pt post op afib
[2025-01-23 16:09] LABS: Hematocrit (blood only) 36.1 % (37.0-47.0); Hemoglobin 11.6 g/dl (12.0-16.0); Mean Corpuscular Hemoglobin 29.6 pg (25.0-34.0); Mean Corpuscular Hgb Conc 32.1 g/dL (32.0-36.0); Mean Corpuscular Volume 92.1 fL (80.0-100.0); Mean Platelet Volume 10.8 fL (9.4-12.4); Platelet Count 276 K/uL (130-400); RDW Coefficient of Variation 13.6 % (11.5-14.5); RDW Standard Deviation 46.1 fL (36.4-46.3); Red Blood Count 3.92 M/uL (4.20-5.40); White Blood Count 9.88 K/ul (4.8-10.8)
[2025-01-23 16:23] LABS: BUN Creatinine Ratio 14.9 (10-20); Calcium 8.6 mg/dl (8.6-10.3); Creatinine Clr Calc Pharmacy 47.4 ml/min; Magnesium 1.9 mg/dl (1.7-2.4); Potassium 3.6 mmol/L (3.5-5.1)
[2025-01-23 16:38] LABS: Thyroid Stimulating Hormone 0.379 uIu/ml (0.300-4.500)
[2025-01-23] MEDS: ceFAZolin 1000MG 1,000 MG/7.5 ML SYR IV SCH (17:31)
[2025-01-23] MEDS: ASCORBIC ACID 500 MG TAB PO SCH (17:31)
[2025-01-23] MEDS: TRANEXAMIC ACID / 0.7% NACL 1,000 MG/100 ML BAG IV SCH (17:32)
[2025-01-23] MEDS: SENNA 8.6 MG TAB PO SCH ×2 (20:12)
[2025-01-23] MEDS: PRAVASTATIN SOD 40 MG TAB PO SCH (20:12)
[2025-01-23] MEDS: DOCUSATE SODIUM 100 MG CAP PO SCH (20:12)
[2025-01-23] MEDS: ASPIRIN 81 MG ECTAB PO SCH (20:13)
[2025-01-23] MEDS: CITALOPRAM 40 MG TAB PO SCH (20:13)
[2025-01-23] MEDS ORDERED: [UNRECOGNIZED DRUG - OTHER] PO SCH (21:00)
[2025-01-24] MEDS: LEVOTHYROXINE SODIUM 88 MCG TABLET PO SCH (05:50)
[2025-01-24 06:16] LABS: Hematocrit (blood only) 29.9 % (37.0-47.0); Hemoglobin 9.8 g/dl (12.0-16.0); Mean Corpuscular Hemoglobin 29.8 pg (25.0-34.0); Mean Corpuscular Hgb Conc 32.8 g/dL (32.0-36.0); Mean Corpuscular Volume 90.9 fL (80.0-100.0); Mean Platelet Volume 11.3 fL (9.4-12.4); Platelet Count 254 K/uL (130-400); RDW Coefficient of Variation 13.5 % (11.5-14.5); RDW Standard Deviation 45.1 fL (36.4-46.3); Red Blood Count 3.29 M/uL (4.20-5.40); White Blood Count 17.32 K/ul (4.8-10.8)
[2025-01-24 06:36] LABS: BUN Creatinine Ratio 18.6 (10-20); Calcium 8.7 mg/dl (8.6-10.3); Creatinine Clr Calc Pharmacy 52.2 ml/min; Potassium 3.7 mmol/L (3.5-5.1)
[2025-01-24 07:40] VITALS: BP 184/65; TEMP 97.9; O2SAT 91
--- NOTE | 2025-01-24 07:57 | Electrocardiogram Report ---
Test Reason : Blood Pressure : */* mmHG Vent. 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
--- NOTE | 2025-01-24 08:03 | Electrocardiogram Report ---
Test Reason : Blood Pressure : */* mmHG Vent. Rate : 66 BPM Atrial Rate : 66 BPM P-R Int : 222 ms QRS Dur : 78 ms QT Int : 448 ms P-R-T Axes : 32 -19 -4 degrees QTcB Int : 469 ms Sinus rhythm with 1st degree A-V block with Premature atrial complexes with Aberrant conduction Minimal voltage criteria for LVH, may be normal variant Old Anterior infarct (cited on or before 23-Jan-2025) Abnormal ECG When compared with ECG of 23-Jan-2025 12:05, Sinus rhythm has replaced Atrial fibrillation Vent. rate has decreased by 57 bpm Criteria for Inferior infarct no longer present Confirmed by Fortunato Menendez ([id number]) on 01/24/2025 8:02:54 AM Referred By: Ebenezer Fry Confirmed By: Fortunato Menendez
[2025-01-24] MEDS: OXYBUTYNIN CHLORIDE XL 5 MG TABCR PO SCH (08:30)
[2025-01-24] MEDS: CYANOCOBALAMIN (B-12) 500 MCG TABLET PO SCH (08:30)
[2025-01-24] MEDS: PANTOprazole 40 MG TAB PO SCH (08:30)
[2025-01-24] MEDS: amLODIPine BESYLATE 5 MG TAB PO SCH (08:30)
[2025-01-24] MEDS: MULTIVITAMIN TAB PO SCH (08:31)
[2025-01-24] MEDS: dexAMETHasone 10 MG in SYRINGE 0 ML IV SCH (08:31)
--- NOTE | 2025-01-24 09:14 | Orthopedic Progress Note ---
Date of Service January 24, 2025 Assessment & Plan (1) Status post total right knee replacement: POD 1 from right tka, with new onset of atrial fibrillation in PACU yesterday. Cardiology consulted and metoprolol started. Pain controlled. dvt prophylaxis: teds, scd's, and aspirin. No change in anticoagulation re commended by cardiology PT/OT wbat, total knee protocol d/c planning: she is hoping to go home today, has home health set up. Will await cardiology input today before discharge. She was seen and examined by Dr. Fry as well. Subjective . 89 year old patient POD 1 right tka. She did develop new onset atrial fibrillation in PACU yesterday, cardiology consulted and started her on metoprolol, transferred to telemetry. She did convert to normal sinus rhythm. She is doing well this morning. Not having knee pain. No other complaints Review of Systems All systems reviewed & are unremarkable except as noted in HPI & below. Physical Exam . alert and oriented. NAD, VSS Right leg: dressing clean, dry, intact. Able to do straight leg raise, dorsiflex and plantarflex. NVI Results & Data Results & Data Laboratory Results . Diagnostic Findings . PG Care Time/CCT Total # of Minutes Spent Total Time Spent with Patient: Total time spent is greater than 50% in coordination of care (as documented) at patient's floor/unit and/or counseling patient: Coding Level of Care Code 60647 Post Operative Follow-Up Diagnoses Status post total right knee replacement Z96.651
[2025-01-24 10:01] VITALS: PULSE 57
--- NOTE | 2025-01-24 11:52 | Cardiology Progress Note ---
Date of Service January 24, 2025 Assessment & Plan (1) New onset a-fib: (2) S/P total knee arthroplasty: (3) Hypertension: Plan 01/23/25 Patient undergoing right total knee arthroplasty today, 01/23. Post op, patient developed afib RVR while in the recovery room. It is unclear whether patient was treated with IV metoprolol. EKG demonstrating afib RVR at [address]/T wave abnormality No symptoms of CP/SOB/palpitations at the time reported. Upon arrival to telemetry 2 hours later, patient had converted to NSR. No history of atrial fibrillation. Currently NSR in the 70's Start low dose metoprolol succinate 12.5 mg daily CHADSVASC score of 5, but given this episode was short in duration in the post op setting, will not initiate anticoagulation at this time Continue on telemetry Check labs including electrolytes and TSH Repeat EKG She has a history of remote CAD with 100% occlusion of the RCA and mild disease in LAD and LCx in 2003. No anginal complaints. Continue ASA, statin Add beta annika HTN continue amlodipine and adding metoprolol 01/24/25: No recurrent atrial fibrillation overnight or this morning. Tolerating low dose metoprolol succinate 12.5 mg daily. Continue on discharge. Sent to pharmacy as requested Given afib was isolated incident in the post op setting only lasting a brief time, no anticoagulation was initiated or indicated. She is being discharged on ASA as part of her DVT proph regimen per ortho. Continue amlodipine for HTN. Consider outpatient ZIO. Patient follows with [facility] cardio and will arrange f/u in 1 month Stable for discharge today. message sent to Dr. Fry. Case discussed with Dr. Martel I spent a total of 25 minutes on the date of service in preparation, delivery, and documentation of the care provided to this patient, excluding any time spent in the performance of separately billed services. Lilian Iyer PA-C Department of Cardiology, [facility] This chart was completed in part utilizing Speech Voice Recognition Software. Grammatical errors, random word insertions, pronoun errors, and incomplete sentences are an occasional consequence of this system due to software limitations, ambient noise, and hardware issues. Any formal questions or concerns about the content, text, or information contained within the body of this dictation should be directly addressed to the provider for clarification. Admission and Anticipated Discharge Date Admission Date: January 23, 2025 Supervising Physician Co-Signing Physician Notes I have reviewed the advance practitioner's documentation, and I agree with, and take responsibility for the plan of care. Joe Martel DO, [facility] Subjective Patient resting in chair. Feeling "great". Anxious for discharge. No chest pain, SOB, palpitations overnight. No recurrent atrial fibrillation overnight. Review of Systems Review of Systems: All systems reviewed & are unremarkable except as noted in HPI & below Physical Exam Constitutional: WD/WN, vitals as above well nourished; no acute distress Neck: trachea midline, no thyromegaly normal visual inspection Respiratory: normal respiratory effort; no labored breathing Auscultation: no crackles and no rales Cardiovascular: Rate/Rhythm: regular rate and regular rhythm Heart Sounds: + murmur (I/ systolic murmur ) Vessels: no JVD Extremities: no edema (right knee wrapped) Gastrointestinal (Abdomen): normal bowel sounds, soft, nontender, no hepatosplenomegaly Skin: no rashes, warm and dry Neurologic: PERRL, EOMI, accommodation nl, no face palsy, no dysarthria Results & Data Vital Signs (Past 12 Hours) Vital Signs Temp Pulse Pulse Pulse Resp BP Pulse Ox 01/24/25 08:20 61 01/24/25 07:45 01/24/25 07:39 36.6 C 53 L 18 184/65 H 91 01/24/25 07:15 57 L 01/24/25 03:02 36.7 C 51 L 18 164/63 H 92 O2 Del Method 01/24/25 08:20 01/24/25 07:45 Room Air 01/24/25 07:39 Room Air 01/24/25 07:15 01/24/25 03:02 Room Air Laboratory Results CBC 01/23/25 01/24/25 Range/Units 15:50 05:24 WBC 9.88 17.32 H (4.8-10.8) K/ul RBC 3.92 L 3.29 L (4.20-5.40) M/uL Hgb 11.6 L 9.8 L (12.0-16.0) g/dl Hct 36.1 L 29.9 L (37.0-47.0) % Plt Count 276 254 (130-400) K/uL Comprehensive Metabolic Panel 01/23/25 01/24/25 Range/Units 15:50 05:24 Sodium 137 138 (136-145) mmol/L Potassium 3.6 3.7 (3.5-5.1) mmol/L Chloride 102 102 (98-107) mmol/L Carbon Dioxide 27 32 (21-32) mmol/L BUN 11 13 (6-23) mg/dl Creatinine 0.74 0.70 (0.6-1.2) mg/dl Glucose 265 H 135 H (70-99(Fasting)) mg/dl Calcium 8.6 8.7 (8.6-10.3) mg/dl Intake and Output 01/23/25 01/24/25 01/24/25 22:59 06:59 14:59 Intake Total 460 / 2580 720 / 2580 Output Total 700 / 1900 950 / 1900 Balance -240 / 680 -230 / 680 Intake: IV 100 / 200 Tranexamic Acid / 0.7% NaCl 1, 100 / 100 000 mg In 100 ml @ 600 mls/hr IV Q6H [facility] Rx#:[id number] Oral 360 / 1080 720 / 1080 Output: Urine Amount (Catheter) 700 / 1850 950 / 1850 Soler/Indwelling 700 / 1850 950 / 1850 Other: # Unmeasured Voids 1 Weight 71.8 kg 77.8 kg 77.8 kg Weight Measurement Method Built in [facility] Patient Weight 01/25/25 06:59 Weight 77.8 kg Diagnostic Findings Telemetry reviewed: NSR with occ PAC/PVC; HR in the 60's. No atrial fibrillation Echo report reviewed dated 01/24/25: Normal LVEF at 60-65% Left atrial size is normal. Aortic valve sclerosis without significant aortic valvular stenosis. Mild TR. No pulmonary hypertension Grade 1 diastolic dysfunction. Medications Administered Current Inpatient Medications Acetaminophen (Acetaminophen 500 Mg Tab) 1,000 mg PO TID [facility] Stop: 02/22/25 14:37 Last Admin: 01/24/25 08:33 Dose: 1,000 mg Al Hydrox/Mg Hydrox/Simethicone (Aluminum/Magnesium Susp 30 Ml Udc) 15 ml PO Q4H PRN PRN Reason: Heartburn Stop: 02/22/25 14:37 Amlodipine Besylate (Amlodipine Besylate 5 Mg Tab) 5 mg PO QAM [facility] Stop: 02/23/25 08:59 Last Admin: 01/24/25 08:30 Dose: 5 mg Ascorbic Acid (Ascorbic Acid 500 Mg Tab) 500 mg PO BIDM [facility] Stop: 02/22/25 16:59 Last Admin: 01/24/25 08:30 Dose: 500 mg Aspirin (Aspirin 81 Mg Ectab) 81 mg PO BID J[facility] Stop: 02/22/25 20:59 Last Admin: 01/24/25 08:30 Dose: 81 mg Bisacodyl (Bisacodyl 10 Mg Supp) 10 mg PA DAILY PRN PRN Reason: Constipation Stop: 02/22/25 14:37 Citalopram Hydrobromide (Citalopram 40 Mg Tab) 40 mg PO HS [facility] Stop: 02/22/25 20:59 Last Admin: 01/23/25 20:13 Dose: 40 mg Cyanocobalamin (Cyanocobalamin (B-12) 500 Mcg Tablet) 1,000 mcg PO QAM [facility] Stop: 02/23/25 08:59 Last Admin: 01/24/25 08:30 Dose: 1,000 mcg Docusate Sodium (Docusate Sodium 100 Mg Cap) 100 mg PO BID J[facility] Stop: 02/22/25 20:59 Last Admin: 01/24/25 08:33 Dose: 100 mg Hydromorphone HCl (Hydromorphone Inj 0.5 Mg/0.5 Ml Syr) 0.5 mg IV Q4H PRN PRN Reason: Pain or Pre PT Stop: 02/06/25 14:37 Ketorolac Tromethamine (Ketorolac Tromethamine 15 Mg/Ml Vial) 15 mg IV Q6H [facility] Stop: 01/25/25 08:39 Last Admin: 01/24/25 08:33 Dose: 15 mg Levothyroxine Sodium (Levothyroxine Sodium 88 Mcg Tablet) 88 mcg PO DAILYBB [facility] Stop: 02/23/25 06:29 Last Admin: 01/24/25 05:50 Dose: 88 mcg Magnesium Hydroxide (Magnesium Hydroxide Susp 30 Ml Udc) 30 ml PO Q6H PRN PRN Reason: Constipation Stop: 02/22/25 14:37 Metoclopramide HCl (Metoclopramide Hcl Inj 5 Mg/Ml 2 Ml Vial) 10 mg IV Q6H PRN PRN Reason: Nausea And Vomiting Stop: 02/22/25 14:37 Metoprolol Succinate (Metoprolol Succ 25mg Ext Rel Tab) [facility]: 02/22/25 15:44 Last Admin: 01/24/25 08:31 Dose: 12.5 mg Multivitamins (Multivitamin Tab) 1 tab PO QAM [facility] Stop: 02/23/25 08:59 Last Admin: 01/24/25 08:31 Dose: 1 tab Naloxone HCl (Naloxone Hcl 0.4 Mg/1 Ml Vial/Carp) 0.1 mg IV Q5M PRN PRN Reason: Oversedation/Resp Depression Stop: 02/22/25 14:37 Ondansetron HCl (Ondansetron Inj 2 Mg/Ml 2 Ml Vial) 4 mg IV Q6H PRN PRN Reason: Nausea And Vomiting Stop: 02/22/25 14:37 Oxybutynin Chloride (Oxybutynin Chloride Xl 5 Mg Tabcr) [facility] [place] Stop: 02/23/25 08:59 Last Admin: 01/24/25 08:30 Dose: 10 mg Oxycodone HCl (Oxycodone Hcl Ir 5 Mg Tab (Immediate Release)) 5 mg PO Q6 PRN PRN Reason: pain Stop: 02/06/25 14:37 Pantoprazole Sodium (Pantoprazole 40 Mg Tab) 40 [facility] [place] Stop: 02/23/25 08:59 Last Admin: 01/24/25 08:30 Dose: 40 mg Pravastatin Sodium (Pravastatin Sod 40 Mg Tab) 80 mg PO QPM [facility] Stop: 02/22/25 20:59 Last Admin: 01/23/25 20:12 Dose: 80 mg Sennosides (Senna 8.6 Mg Tab) 8.6 mg PO BID [facility] Stop: 02/22/25 20:59 Last Admin: 01/24/25 08:35 Dose: 8.6 mg Sennosides (Senna 8.6 Mg Tab) 17.2 mg PO HS [facility] Stop: 02/22/25 20:59 Last Admin: 01/23/25 20:12 Dose: 17.2 mg
--- NOTE | 2025-01-26 07:59 | Discharge Summary ---
Date of Service January 26, 2025 Admission HPI (Per Admitting) . The patient is an 89-year-old female who is status post a right total hip replacement done for femoral neck stress fracture about 10 months ago. She was pretty debilitated by this for a while and dropped but recovered quite nicely from the surgery. Over the past 6 months she developed increased pain discomfort in the right knee. We tried an injection which has not been successful at all. He is having trouble maintaining her activity level due to her knee pain. The hips done great. She like to have her knee fixed. Admission Exam (Per Admitting) . Physical examination reveals a pleasant spry elderly female. Looks in pretty good health. Examination of the right knee and leg reveal patient ambulates independently. She does limp on the right side. She got varus alignment to her knee. Tender with medial joint line. Minimal knee effusion. Range of motion is 0-1 25. No pain at all with hip motion. She is neurologically intact. Negative straight leg raise. Principal Diagnosis Same as "Discharge Diagnosis" noted below under Discharge Instructions. Discharge Exam . alert and oriented. NAD, VSS Right leg: dressing clean, dry, intact. Able to do straight leg raise, dorsiflex and plantarflex. NVI Discharge Data Consultations 01/23/25 13:18 Consult Cardiology Routine 01/23/25 15:01 Consult Cardiology Routine Procedures Performed Operation Date: 01/23/25 10:40 Actual Procedures p Right Total Knee Arthroplasty(Right) - Ebenezer Fry MD Ordered Studies 01/23/25 05:00 US - OR guided needle placemen Routine Hospital Course (1) Status post total right knee replacement: This is a 89 year old patient admitted on 01/23/25 and underwent total knee arthroplasty. She tolerated the procedure well and there were no complications. Transferred to the PACU post op where she developed atrial fibrillation, but converted to normal sinus rhythm, and later transferred to telemetry for further care. Cardiology was consulted and followed her throughout her hospital stay. They did start metoprolol 12.5mg daily. She was given ancef for antibiotic prophylaxis. She was also given GISELE stockings, SCDs, and aspirin for DVT prophylaxis. Hemoglobin, hematocrit, and vital signs were monitored during her hospital stay and remained stable. Did not require any blood transfusions. There were no additional complications during her hospital stay. By post op day #1 the patient was tolerating a regular diet, pain was reasonably controlled with oral pain medicine, and she was participating in physical therapy. On post op day #1 the patient was discharged home and set up with home health care. She was given printed discharge instructions including prescriptions for extra strength tylenol, aspirin, cefadroxil, ketorolac, zofran, oxycodone, and senokot. Continue metoprolol and follow up with cardiology recommended in 1 month. Continue physical therapy, weight bearing as tolerated. Continue GISELE stockings. Follow up approximately 2 weeks post op or sooner if there are problems or concerns. PG Care Time/CCT Total # of Minutes Spent Total Time Spent with Patient: : Discharge Plan Discharge Items Patient Disposition: Home - Home Health Services Reason For Visit: Right Knee Osteoarthritis Discharge Diagnosis: Right Knee Replacement Activity: Per Instructions section Weightbearing: Full weightbearing Non-emergency contact: Surgeon Call non-emergency contact if: you have any medication questions Follow-up/Referrals: Oniel Mike [Primary Care Provider] - Diet: Regular Addtl Attending Provider Instructions: ACTIVITY RECOMMENDATIONS: Diet: * You may resume previous diet. Physical Therapy: * You will go to physical therapy three times each week for four to six weeks after your surgery in order to regain your knee range of motion and to retrain your knee to work properly. * It is just as important to make sure you are getting your knee perfectly straight as it is to regain your knee bend. * Taking a pain pill an hour before therapy can help you have a more productive and comfortable therapy session. Home Exercise: * You were shown a series of exercises (heel props, heel slides, etc.) in the hospital. Do these exercises three to four times each day including the exercises you were shown in physical therapy. Walking: * Get up and walk several times each day. For the first four weeks, try not to stand or walk for more than one hour at a time. If you do stand or walk for more than one hour, you will not hurt anything, but your knee and leg will likely swell. * As you feel comfortable, you may change from the walker or crutches to a cane and then to independent walking. MEDICATIONS: New Medicine: * You will likely be taking one or more of these medications: 1. Oxycodone - A quick and shorter-acting pain medication. Take one to two tablets every six hours to lessen your pain. 2. Aspirin - Thins your blood to lessen the chance of forming a blood clot. * The most common side effects of pain medicine and iron are nausea and constipation. If nausea or constipation is too much of a problem or if you have any questions about your new medicines or doses, call [facility] at . We will try to help you manage these issues. "VERY IMPORTANT TO READ AND REVIEW" Pain: * The immediate post-operative period after knee replacement surgery is often quite painful. * You are given a prescription for pain medicine. You should take it, as directed, when you need it, especially before physical therapy and before going to bed. Pain that interferes with sleep is very common and can last several months. * You will likely need pain medicine for the first four to six weeks. It will not stop all of the pain. The pain will lessen and as you feel better, you may change to milder pain medicine such as Tylenol. * The most common side effects of pain medicine are nausea and constipation, so don't take more than you need. SPECIAL CARE INSTRUCTIONS: TEDs/Elastic Stockings: * The white elastic stockings help limit swelling and prevent blood clots from forming in your legs. The more you wear them, the more they work. * Wear them for six weeks after knee replacement surgery and four weeks after partial knee replacement. Incision Site Care: * Remove dressing postoperative day 2 and then shower. Keep direct shower pressure off the incision site. * After showering, cover virgie with dry gauze and change daily or more frequently if the dressing is getting saturated with drainage. * Use the GISELE stockings to hold dressing in place. DO NOT apply tape on the skin. * May completely stop using bandage if wound is dry and no drainage * Virgie are removed between 2 and 3 weeks post-op. If your follow-up appointment is made before 2 weeks, please have your appointment re- scheduled. It is too early to remove the virgie. Prevention of Infection: * Take antibiotics one hour before any dental cleaning, dental work, urological procedure, gastrointestinal procedure or any invasive surgery in order to prevent your new joint from getting infected. * You may get the antibiotics from the doctor performing the procedure or you may call our office at [phone] before and we will call in a prescription to the pharmacy of your choice. Things to Watch For: * Drainage from the incision site that occurs more than one week after your surgery. * Severely increased knee/leg pain or swelling. * Increased redness at the incision site. * Fever above 102 degrees Fahrenheit. * Unusual chest pain or shortness of breath. * Unusual pain or burning with urination. Call [facility] at [phone] with any of the above problems or if you have any questions about your medicines or recovery. FOLLOW UP VISIT: Make an appointment to see your doctor for approximately two weeks after surgery for a progress check and staple removal by calling the office at [phone]. Pending Studies at Discharge: No Stand-Alone Forms: My [facility], Pain - Opioid Pain Management, Smoking Cessation Medications and DC Order Prescriptions: Continued oxycodone 5 mg tablet 5 mg PO Q6 PRN (Reason: pain) Qty: 40 0RF Rx Instructions: Take as needed for pain ondansetron 4 mg tablet,disintegrating 4 mg PO Q8 PRN (Reason: nausea) Qty: 20 1RF Rx Instructions: Take as needed for nausea sennosides [Senokot] 8.6 mg tablet 8.6 mg PO BID 14 Days Qty: 28 0RF Rx Instructions: Take two times a day to prevent/treat constipation acetaminophen [Tylenol Extra Strength] 500 mg tablet 1,000 mg PO TID 30 Days Qty: 180 0RF Rx Instructions: Take 3 times per day to lessen pain. aspirin [Lorenzo Low Dose Aspirin] 81 mg tablet,delayed release (DR/EC) 81 mg PO BID 45 Days Qty: 90 0RF Rx Instructions: Take to prevent blood clots. cefadroxil 500 mg capsule 500 mg PO BID 7 Days Qty: 14 0RF Rx Instructions: Take 1 cap twice a day to prevent infection amlodipine [Norvasc] 5 mg tablet 5 mg PO QAM aspirin 81 mg tablet,delayed release (DR/EC) 81 mg PO QPM citalopram [Celexa] 40 mg tablet 40 mg PO HS cyanocobalamin (vitamin B-12) 1,000 mcg tablet extended release 1,000 mcg PO QAM Co [id number] E-Fish Oil 25-150-200 mg-mg-unit capsule 1 cap PO BID levothyroxine 88 mcg capsule 88 mcg PO QAM oxybutynin chloride 10 mg tablet extended release 24hr 10 mg PO QAM pantoprazole 40 mg tablet,delayed release (DR/EC) 40 mg PO QAM pravastatin 80 mg tablet 80 mg PO QPM Discontinued acetaminophen [Tylenol Extra Strength] 500 mg tablet 1,000 mg PO TID PRN (Reason: pain) Rx Instructions: TAke 3 times per day to lessen pain. Tate/Other Patient Handouts: Total Knee Replacement, Knee Replace Home Recovery, Knee Replacement Knee Health, Knee Replace Recovery Admission Data Admit Date/Time: 01/23/25 12:55 Attending Provider: Ebenezer Fry Admit Provider: Ebenezer Fry Primary Care Provider: Oniel Mike Other Providers: Christin Mccauley; Ebenezer Daniel; Bob Grajeda; Joe Martel; Juanito Daly; Julio C Martell; Lilian Iyer; Micki Emanuel; Zhane Yates; Christin Cooper; Seth Kauffman; Akil Horn; Kristi Nevarez; Alejandra Kearney; Patsy Dallas; Moi Lee; Umang Duke; Aster Mehta; Arianne Lazo; Kai Guzman; Fortunato Menendez; Williams Martin; Ebenezer Banks; Tyler Villafuerte; Baljit Menchaca Jr; Mo Oliveira; Charley Schmitt; Buffy Thacker; Jose Eduardo Lal; Jose Eduardo Otto; Jami Rojas; Juanito Charlton; Maryam Doyle; Juanito Mock; Taras Cai; Nickolas Jones; [facility] Other Interventions: Discharge Summary Assessment (RN) Last Done: 01/24/25 11:31
== END 2025-01-24 14:07 | disposition home health service (06) ==
LOC: ASU 08:45 → 2N 08:45